=== PATIENT | male | born 1960 | race Caucasian/White ===

== ENCOUNTER 2024-01-30 15:37 | Inpatient (IN) ==
[2024-01-30] MEDS: ONDANSETRON INJ 2 MG/ML 2 ML VIAL IV STA (15:57)
[2024-01-30 16:18] LABS: Appearance Urine Clear (Clear); Bacteria Urine Automated Negative (Negative); Basophils # (auto) 0.08 K/uL (0.00-0.20); Basophils % (auto) 0.6 %; Bilirubin Urine Negative (Negative); Blood Urine Trace (Negative); Cast Urine Automated 0 /lpf (0-5); Color Urine Yellow; Eosinophils # (auto) 0.01 K/uL (0.00-0.50); Eosinophils % (auto) 0.1 %; Glucose Urine UA Trace (Negative); Hemoglobin 17.4 g/dl (14.0-18.0); Immature Granulocytes # (auto) 0.06 K/uL (0.01-0.20); Immature Granulocytes % (auto) 0.5 %; Ketones Urine 3+ (Negative); Leukocyte Esterase Urine Negative (Negative); Lymphocytes # (auto) 1.84 K/uL (1.20-3.40); Lymphocytes % (auto) 13.8 %; Mean Corpuscular Hemoglobin 31.2 pg (25.0-34.0); Mean Corpuscular Volume 84.2 fL (80.0-100.0); Monocytes % (auto) 10.5 %; Neutrophils # (auto) 9.92 K/uL (1.40-6.50); Neutrophils % (auto) 74.5 %; Nitrite Urine Negative (Negative); Platelet Count 201 K/uL (130-400); Protein Urine Negative (Negative); RBC Urine Automated 0-4 /hpf (0-4); RDW Coefficient of Variation 12.5 % (11.5-14.5); RDW Standard Deviation 38.2 fL (36.4-46.3); Red Blood Count 5.58 M/uL (4.70-6.10); Urobilinogen Urine Negative (Negative); White Blood Count 13.31 K/ul (4.8-10.8)
--- NOTE | 2024-01-30 16:28 | Emergency Department Note ---
ED Provider Note History of Present Illness Chief Complaint: Abdominal Pain Stated Complaint: ABDOMINAL PAIN - REFERRED BY MD Time Seen by Provider: 01/30/24 16:15 Source: patient Mode of arrival: ambulatory Limitations: no limitations This patient is a 63-year-old male who presents to the emergency department for evaluation of abdominal pain. Patient reports that symptoms started 3 days ago with an urge to have a bowel movement, but he was unable to go. He states that symptoms persisted and he took Dulcolax without relief. Yesterday, he started to feel somewhat better and try to eat a light meal but threw up immediately afterward. He is unable to keep anything down. He continues to have an uncomfortable feeling in his abdomen as well as a sensation that he has to have a bowel movement. He states that he has had episodes similar to this in the past, but they typically occur when he is very stressed and he assumes they are due to IBS. He states that they normally resolve on their own within about a day. He denies any fever/chills, urinary symptoms, chest pain or shortness of breath. He denies any rectal bleeding. He did have a colonoscopy a month ago which was normal. Home Medications Medication Instructions Recorded Confirmed Type cetirizine 10 mg capsule (Zyrtec) 10 mg PO QAM 09/10/23 02/09/24 History flecainide 50 mg tablet 50 mg PO Q12H #60 tabs 02/02/24 02/09/24 Rx metoprolol succinate 50 mg 50 mg PO DAILY #30 tabs 02/02/24 02/09/24 Rx tablet,extended release 24 hr rivaroxaban 20 mg tablet (Xarelto) 20 mg PO DAILY 02/04/24 02/09/24 History multivitamin 1 tab PO DAILY 02/07/24 02/09/24 History acetaminophen 325 mg tablet 325 mg PO QID PRN 02/09/24 02/09/24 History (Tylenol) buspirone 5 mg tablet 5 mg PO TID 30 days #90 tabs 02/09/24 02/09/24 Rx Allergies Allergy/AdvReac Type Severity Reaction Status Date / Time No Known Allergies Allergy Verified 02/09/24 11:41 Past Med/Surg History Medical History (Updated 02/10/24 @ 22:40 by Jenny Ma PA-C) HTN (hypertension) Left ureteral stone Impaired fasting glucose Afib Lyme disease 07/2023- per PCP records- completed course of Doxy- symptoms resolved Dupuytren's contracture of both hands Surgical History (Updated 01/31/24 @ 15:12 by Edith Nixon DO) Hx of colonoscopy Status post Dupuytren's fasciectomy 09/23/23--Right small finger Dupuytren's fasciectomy, palm and finger with release of proximal interphalangeal joint, including volar PIP capsulotomy History of tooth extraction per pt, given propofol; no issues Family History Mother Lung cancer Stroke Myocardial infarction Heart disease Denies family history of Ovarian cancer Prostate cancer Diabetes Breast cancer Colorectal cancer Hypertension Social History Smoking Status: Never smoker Second Hand Exposure: No; Do You Dip or Chew Tobacco: No; Hx Alcohol Use: No Hx Substance Use: No Preferred Language: Telugu Communication Ability: Effective Visual Impairment: Limited Hearing Ability: Normal 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: No Beliefs That Will Affect Care: None marital status: Current Living Situation: Spouse current occupational status: employed 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 How many Children do You have: 2 Feels Safe at Home: Yes Childhood Exposure to Second-Hand Smoke: Yes caffeine: Yes Dental Care, Regularly: Yes Physical Activity Frequency: 5-6 Times per Week Physical Activity Frequency Comment: walking Seatbelt Use: always Sunscreen Use: Yes Assistive Devices: None Physical Exam Vital Signs Vital Signs - 24 hr 01/30/24 15:45 Temperature 36.5 C Temperature Source Temporal Artery Scan Pulse Rate 91 H Respiratory Rate 19 Respiratory Effort / Characteristics Non-Labored Spontaneous Respiratory Depth Normal Blood Pressure 141/99 H Blood Pressure Mean 113 Pulse Oximetry 98 Oxygen Delivery Method Room Air Sepsis Recent Fever Within 48 Hours No Sepsis New/Unexplained Change in Mental Status No Sepsis Action Taken by Nursing No Action Required VITALS: Vitals are noted on the nurse's note and reviewed by myself. GENERAL: This is a 63-year-old male, in no acute distress, well-developed well- nourished. EYES: Pupils equal round and reactive to light and accommodation. No scleral icterus. MOUTH: Mucous membranes moist. HEART: Regular rate and rhythm without murmurs gallops or rubs. LUNGS: Clear to auscultation bilaterally without wheezes, rales or rhonchi. ABDOMEN: Positive bowel sounds x 4. Soft, mild tenderness to palpation across lower abdomen. No guarding or rebound tenderness. NEURO: Patient was alert and oriented to person place and time. Course Administered Medications Discontinued Medications Acetaminophen (Acetaminophen 325 Mg Tab) 650 mg PO Q4H PRN PRN Reason: Pain or Fever Stop: 02/29/24 19:58 Last Admin: 02/01/24 20:48 Dose: 650 mg Documented By: Admin: 02/01/24 16:00 Dose: 650 mg Documented By: Admin: 02/01/24 06:12 Dose: 650 mg Documented By: Admin: 02/01/24 00:04 Dose: 650 mg Documented By: Admin: 01/31/24 20:25 Dose: 650 mg Documented By: CHRIS Adenosine (Adenosine Iv Soln 3 Mg/Ml 2 Ml Vial) Confirm Administered Dose 12 mg IV .STK-MED ONE Stop: 01/30/24 19:32 Last Admin: 01/30/24 19:49 Dose: Not Given Documented By: ERA Bisacodyl (Bisacodyl 5 Mg Tabec) 5 mg PO NOW ONE Stop: 02/01/24 14:26 Last Admin: 02/01/24 15:53 Dose: Not Given Documented By: PIETRO Buspirone HCl (Buspirone 5 Mg Tab) 5 mg PO TID PRISCILLA Stop: 03/02/24 20:59 Last Admin: 02/02/24 09:18 Dose: 5 mg Documented By: Admin: 02/01/24 20:48 Dose: 5 mg Documented By: ALEJANDRA Ceftriaxone Sodium (Ceftriaxone Sodium 2000mg/50ml D5w) Confirm Administered Dose 2,000 mg IV .STK-MED ONE Stop: 01/30/24 20:18 Last Admin: 01/30/24 20:25 Dose: Not Given Documented By: ERA Diatrizoate Meglumine (Diatrizoate Meglumine 30% 100ml Vial) 100 ml INSTIL UD PRN PRN Reason: Radiology Use Stop: 02/04/24 15:50 Last Admin: 01/31/24 16:07 Dose: 30 ml Documented By: [id number] Flecainide Acetate (Flecainide Acetate 100 Mg Tablet) 100 mg PO ONE ONE Stop: 02/01/24 11:41 Last Admin: 02/01/24 12:36 Dose: 100 mg Documented By: PIETRO Flecainide Acetate (Flecainide Acetate 100 Mg Tablet) 50 mg PO Q12 PRISCILLA Stop: 03/02/24 20:59 Last Admin: 02/02/24 09:17 Dose: 50 mg Documented By: Admin: 02/01/24 20:48 Dose: 50 mg Documented By: ALEJANDRA Heparin Sodium (Porcine) (Heparin Sod (Porcine) 1000 Unit/Ml) 4,000 units IV NOW ONE Stop: 01/31/24 07:31 Last Admin: 01/31/24 08:19 Dose: 4,000 units Documented By: POLO Co-signed By: SEBASTIAN Heparin Sodium/Dextrose (Heparin Iv Adult Wt-Based Low-Dose *No* Initial Bolus Protocol) 1 each IV ONE STA; Protocol Stop: 01/30/24 20:18 Last Admin: 01/31/24 08:29 Dose: Not Given Documented By: POLO Hydromorphone HCl (Hydromorphone Inj 0.5 Mg/0.5 Ml Syr) 0.5 mg IV NOW STA Stop: 01/30/24 19:22 Last Admin: 01/30/24 19:51 Dose: 0.5 mg Documented By: ERA Hydromorphone HCl (Hydromorphone Inj 1 Mg/Ml Syringe) 1 mg IV Q4H PRN PRN Reason: Severe Pain (7,8,9,10) on NRS Stop: 02/13/24 20:14 Last Admin: 01/31/24 10:36 Dose: 1 mg Documented By: Admin: 01/31/24 06:40 Dose: 1 mg Documented By: Admin: 01/31/24 02:44 Dose: 1 mg Documented By: Admin: 01/30/24 22:34 Dose: 1 mg Documented By: YANY Hydromorphone HCl (Hydromorphone Inj 1 Mg/Ml Syringe) 1 mg IV Q3H PRN PRN Reason: Severe Pain (7,8,9,10) on NRS Stop: 02/13/24 20:14 Last Admin: 01/31/24 13:39 Dose: 1 mg Documented By: POLO Sodium Chloride (Nss) 1,000 mls @ 999 mls/hr IV .Q1H1M ONE Stop: 01/30/24 17:24 Last Infusion: 01/30/24 18:52 Dose: Infused Documented By: Admin: 01/30/24 16:47 Dose: 999 mls/hr Documented By: ERA Lactated Ringer's (Lr) 1,000 mls @ 999 mls/hr IV .Q1H1M ONE Stop: 01/30/24 20:43 Last Infusion: 01/30/24 23:38 Dose: Infused Documented By: Admin: 01/30/24 20:26 Dose: 999 mls/hr Documented By: Infusion: 01/30/24 20:26 Dose: Infused Documented By: Admin: 01/30/24 19:50 Dose: 999 mls/hr Documented By: ERA Lactated Ringer's (Lr) 1,000 mls @ 999 mls/hr IV .Q1H1M ONE Stop: 01/30/24 20:54 Last Infusion: 01/30/24 23:39 Dose: Infused Documented By: Admin: 01/30/24 21:53 Dose: 999 mls/hr Documented By: YANY Lactated Ringer's (Lr) 500 mls @ 999 mls/hr IV .Q31M ONE Stop: 01/30/24 20:24 Last Infusion: 01/30/24 23:39 Dose: Infused Documented By: [facility] Admin: 01/30/24 20:26 Dose: 999 mls/hr Documented By: ERA Ceftriaxone Sodium 2,000 mg/ (Dextrose) 50 mls @ 100 mls/hr IV Q24H [facility]; Protocol Stop: 02/04/24 19:59 Last Infusion: 01/31/24 20:56 Dose: Infused Documented By: Admin: 01/31/24 20:26 Dose: 100 mls/hr Documented By: Infusion: 01/30/24 22:37 Dose: Infused Documented By: [facility] Admin: 01/30/24 21:52 Dose: 100 mls/hr Documented By: [facility] Heparin Sodium/Dextrose (Heparin Sodium/Dextrose) 25,000 units in 500 mls @ 0 mls/hr IV .Q0M PRISCILLA; Protocol Stop: 02/29/24 22:29 Last Titration: 02/02/24 09:00 Dose: Infused Documented By: PK Co-signed By: BEBA Titration: 01/31/24 11:02 Dose: 0 units/hr, 0 mls/hr Documented By: DTT Co-signed By: RAUL Titration: 01/31/24 07:19 Dose: 1,200 units/hr, 24 mls/hr Documented By: DTT Co-signed By: AJJanie Titration: 01/31/24 07:19 Dose: 1,000 units/hr, 20 mls/hr Documented By: DTT Co-signed By: RAUL Titration: 01/31/24 07:18 Dose: 1,000 units/hr, 20 mls/hr Documented By: DTT Co-signed By: RAUL Admin: 01/30/24 23:25 Dose: 1,000 units/hr, 20 mls/hr Documented By: ASM Co-signed By: DEEPIKA Parenteral Electrolytes (Plasma-Lyte A Ph 7.4) 1,000 mls @ 50 mls/hr IV .Q20H PRISCILLA Stop: 02/29/24 21:29 Last Admin: 02/01/24 17:59 Dose: Not Given Documented By: Infusion: 02/01/24 06:59 Dose: Infused Documented By: Admin: 02/01/24 00:05 Dose: 125 mls/hr Documented By: Infusion: 02/01/24 00:05 Dose: Infused Documented By: Admin: 01/31/24 18:12 Dose: 125 mls/hr Documented By: Infusion: 01/31/24 18:12 Dose: Infused Documented By: Infusion: 01/31/24 15:21 Dose: 0 mls/hr Documented By: Admin: 01/31/24 07:37 Dose: 125 mls/hr Documented By: Infusion: 01/31/24 07:25 Dose: Infused Documented By: Admin: 01/30/24 23:25 Dose: 125 mls/hr Documented By: YANY Cefazolin Sodium (Ancef 2000mg) 2,000 mg in 15 mls @ 3.75 mls/min IV ONCE ONE; Protocol Stop: 01/31/24 15:57 Last Admin: 01/31/24 15:33 Dose: 3.75 mls/min Documented By: FATIMAH Lorazepam 0.25 mg/ Syringe 0.25 mls @ 2 mls/min IV NOW STA Stop: 01/31/24 21:40 Last Admin: 01/31/24 21:49 Dose: 2 mls/min Documented By: CHRIS Insulin Aspart (Insulin Aspart Per Unit Charge) 0 units SC ACHS PRISCILLA Stop: 02/29/24 20:59 Last Admin: 02/01/24 12:13 Dose: Not Given Documented By: Admin: 02/01/24 09:19 Dose: Not Given Documented By: Admin: 01/31/24 20:49 Dose: 1 units Documented By: CHRIS Co-signed By: BRICE Admin: 01/31/24 18:38 Dose: Not Given Documented By: Admin: 01/31/24 12:16 Dose: Not Given Documented By: Admin: 01/31/24 08:29 Dose: Not Given Documented By: Admin: 01/30/24 22:36 Dose: Not Given Documented By: YANY Ioversol (Optiray 320 100ml) 89 ml IV ONCE ONE Stop: 01/30/24 16:57 Last Admin: 01/30/24 16:57 Dose: 89 ml Documented By: DEANDRA Ketorolac Tromethamine (Ketorolac Tromethamine 15 Mg/Ml Vial) 15 mg IV NOW STA Stop: 01/30/24 17:35 Last Admin: 01/30/24 17:47 Dose: 15 mg Documented By: ERA Lorazepam (Lorazepam 1 Mg Tab) 1 mg SL NOW STA Stop: 02/01/24 09:41 Last Admin: 02/01/24 10:33 Dose: 1 mg Documented By: PIETRO Melatonin (Melatonin 3 Mg Tab) 3 mg PO HS PRN PRN Reason: Sleep Stop: 03/02/24 18:09 Last Admin: 02/01/24 20:48 Dose: 3 mg Documented By: ALEJANDRA Metoprolol Tartrate (Metoprolol Tartrate 1 Mg/Ml Vial) 5 mg IV NOW STA Stop: 01/30/24 19:40 Last Admin: 01/30/24 19:40 Dose: 5 mg Documented By: ERA Metoprolol Tartrate (Metoprolol Tartrate 1 Mg/Ml Vial) Confirm Administered Dose 5 mg IV .STK-MED ONE Stop: 01/30/24 19:41 Last Admin: 01/30/24 19:49 Dose: Not Given Documented By: ERA Metoprolol Tartrate (Metoprolol Tartrate 25 Mg Tab) 25 mg PO BID PRISCILLA Stop: 02/29/24 19:54 Last Admin: 01/31/24 08:30 Dose: Not Given Documented By: Admin: 01/30/24 20:23 Dose: 25 mg Documented By: ERA Metoprolol Tartrate (Metoprolol Tartrate 25 Mg Tab) 12.5 mg PO BID PRISCILLA Stop: 03/01/24 20:59 Last Admin: 02/01/24 09:20 Dose: 12.5 mg Documented By: Admin: 01/31/24 20:50 Dose: 12.5 mg Documented By: CHRIS Metoprolol Tartrate (Metoprolol Tartrate 25 Mg Tab) 25 mg PO BID PRISCILLA Stop: 03/01/24 20:59 Last Admin: 02/02/24 09:17 Dose: 25 mg Documented By: Admin: 02/01/24 20:50 Dose: 25 mg Documented By: Admin: 02/01/24 11:17 Dose: 25 mg Documented By: PIETRO Metoprolol Tartrate (Metoprolol Tartrate 1 Mg/Ml Vial) 5 mg IV NOW STA Stop: 02/01/24 09:42 Last Admin: 02/01/24 10:33 Dose: 5 mg Documented By: PIETRO Morphine Sulfate (Morphine Sulfate 10 Mg/Ml Carp/Vial) 6 mg IV NOW STA Stop: 01/30/24 17:35 Last Admin: 01/30/24 17:46 Dose: 6 mg Documented By: ERA Ondansetron HCl (Ondansetron Inj 2 Mg/Ml 2 Ml Vial) 4 mg IV NOW STA Stop: 01/30/24 15:49 Last Admin: 01/30/24 15:57 Dose: 4 mg Documented By: TI Medical Decision Making Differential Diagnosis Appendicitis, testicular torsion, infections, diverticulitis, UTI, obstruction, mesenteric ischemia, aortic pathology, inflammatory bowel disease, renal colic, PUD, pancreatitis, biliary pathology, hernia, volvulus, constipation, as well as other pathologies. Laboratory Data Attestation: I reviewed the patient's lab results. 02/02/24 06:22 02/02/24 06:22 Lab Results 01/30/24 01/30/24 01/30/24 Range/Units 15:54 17:05 19:38 WBC 13.31 H (4.8-10.8) K/ul RBC 5.58 (4.70-6.10) M/uL Hgb 17.4 (14.0-18.0) g/dl Hct 47.0 (42.0-52.0) % MCV 84.2 (80.0-100.0) fL MCH 31.2 (25.0-34.0) pg MCHC 37.0 H (32.0-36.0) g/dL RDW Std Deviation 38.2 (36.4-46.3) fL RDW Coeff of Michael 12.5 (11.5-14.5) % Plt Count 201 (130-400) K/uL MPV 9.0 L (9.4-12.4) fL Immature Gran % (Auto) 0.5 % Neut % (Auto) 74.5 % Lymph % (Auto) 13.8 % Moody % (Auto) 10.5 % Eos % (Auto) 0.1 % Baso % (Auto) 0.6 % Neut # (Auto) 9.92 H (1.40-6.50) K/uL Lymph # (Auto) 1.84 (1.20-3.40) K/uL Moody # (Auto) 1.40 H (0.11-0.59) K/uL Eos # (Auto) 0.01 (0.00-0.50) K/uL Baso # (Auto) 0.08 (0.00-0.20) K/uL Immature Gran # (Auto) 0.06 (0.01-0.20) K/uL PT 12.4 H (9.0-12.0) Seconds INR 1.1 (0.9-1.1) APTT 26 (21-31) Seconds PTT Ratio 0.9 VBG pH 7.57 H (7.36-7.41) VBG pCO2 22 L (38-50) mmHg VBG pO2 58 mmHg VBG HCO3 20 mmol/L VBG O2 Saturation 93.2 % VBG Base Excess 0 mEq/L Sodium 135 L (136-145) mmol/L Potassium TNP 3.7 Chloride 103 (98-107) mmol/L Carbon Dioxide 17 L (21-32) mmol/L Anion Gap 15 H (3-11) BUN 19 (6-23) mg/dl Creatinine 1.27 (0.6-1.4) mg/dl Est Cr Clr Drug Dosing 78.5 ml/min Est GFR ( Amer) 70.2 ml/min Est GFR (Non-Af Amer) 60.6 ml/min BUN/Creatinine Ratio 15.0 (10-20) Glucose 134 H (70-99(Fasting)) mg/dl Estimat Average Glucose 100 mg/dl Hemoglobin A1c 5.1 (4.5-5.6) % Lactate 2.2 H* (0.4-2.0) mmol/L Calcium 9.6 (8.6-10.3) mg/dl Magnesium 2.0 (1.7-2.4) mg/dl Total Bilirubin 2.1 H (0.2-1.0) mg/dl AST TNP 14 ALT 15 (7-52) U/L Alkaline Phosphatase 72 (34-104) U/L Total Protein 7.7 (6.0-8.3) gm/dl Albumin 4.4 (3.4-5.0) gm/dl Globulin 3.3 (2.5-4.0) gm/dl Albumin/Globulin Ratio 1.3 (0.9-2) Lipase 18 (11-82) U/L Urine Color Yellow Urine Appearance Clear (Clear) Urine pH 6.0 (4.5-7.5) Ur Specific [place] 1.010 (1.000-1.030) Urine Protein Negative (Negative) Urine Glucose (UA) Trace H (Negative) Urine Ketones 3+ H (Negative) Urine Blood Trace H (Negative) Urine Nitrite Negative (Negative) Urine Bilirubin Negative (Negative) Urine Urobilinogen Negative (Negative) Ur Leukocyte Esterase Negative (Negative) Urine WBC (Auto) 1-5 (0-5) /hpf Urine RBC (Auto) 0-4 (0-4) /hpf U Hyaline Cast (Auto) 0 (0-5) /lpf U Epithel Cells (Auto) 5-10 H (0-5) /lpf Urine Bacteria (Auto) Negative (Negative) Imaging Data Attestation: I personally reviewed and interpreted this imaging study as follows: Radiologist's Impression: Abdomen/Pelvis CT 01/30/24 16:[address] WITH IV CONTRAST CT DOSE: 1545.67 mGy.cm HISTORY: abdominal discomfort, vomiting TECHNIQUE: Multiaxial CT images of the abdomen and pelvis were performed following the use of intravenous contrast. A dose lowering technique was utilized adhering to the principles of ALARA. COMPARISON STUDY: None. FINDINGS: The lung bases are clear. No pneumoperitoneum. No pneumatosis. No acute fractures identified. The liver, gallbladder, pancreas, spleen, and adrenal glands are unremarkable. A 9 mm hypodense lesion within the right kidney is technically too small to characterize but favors a cyst. No right-sided hydronephrosis. There is a 12 x 9 mm obstructing stone within the distal left ureter on image 338 resulting in moderate left hydroureteronephrosis and left perinephric edema. There is a 1.9 cm exophytic lesion within the left kidney on image 157. This does not clearly represent a simple cyst and could represent a hyperdense cyst. However, follow-up nonemergent renal ultrasound recommended to exclude the possibility of a solid renal mass. The main portal vein is patent. Normal caliber abdominal aorta. No retroperitoneal or pelvic lymphadenopathy. Normal bladder. No pelvic free fluid. Small fat-containing right inguinal hernia is noted. Colonic diverticulosis. No evidence for acute diverticulitis. No bowel wall thickening or obstruction. Normal appendix. IMPRESSION: 1. A 12 x 9 mm obstructing stone within the distal left ureter resulting in moderate left hydroureteronephrosis. 2. Colonic diverticulosis. No evidence for acute diverticulitis. 3. A 1.9 cm exophytic lesion within the left kidney which does not clearly represent a simple cyst. This could represent a hyperdense cyst. However, follow-up nonemergent renal ultrasound recommended to exclude the possibility of a solid renal mass. ACT 112: Positive. There are findings on this exam that require communication between the performing entity and the patient following Patient Test Result Information Act ([place] Act 112) guidelines. Electronically signed by: Jayden Davila M.D. 01/30/2024 5:25 PM MDM Narrative Continuous miner: Order was placed for continuous miner. Patient was placed on the miner. Patient was noted to be in normal sinus rhythm at an initial rate of 86 bpm. The patient is a 63-year-old male who presents today complaining of abdominal pain. Patient was found to have a large left ureteral stone. Labs do show a mild anion gap acidosis. Mild leukocytosis noted, no evidence of infection on UA and no fever. Despite several doses of pain medication, he did have continued discomfort and was agreeable to admission. Case discussed with information security specialist urology who recommended admission to the medical service. Case discussed with [facility] [place] who agreed to evaluate the patient for further care. Impression Left ureteral stone Discharge Plan Visit Data Chief Complaint: Abdominal Pain Stated Complaint: ABDOMINAL PAIN - REFERRED BY ED Provider: Zachariah Fraire ED Midlevel Provider: Jenny Ma Discharge Problem: Left ureteral stone Patient Disposition: Admitted As Inpatient Discharge Instructions Interventions: ED Discharge Assessment Last Done: 01/30/24 21:21
[2024-01-30 16:44] LABS: Alanine Aminotransferase 15 U/L (7-52); Albumin Globulin Ratio 1.3 (0.9-2); Albumin Level 4.4 gm/dl (3.4-5.0); Alkaline Phosphatase 72 U/L (34-104); Anion Gap 15 (3-11); Bilirubin,Total 2.1 mg/dl (0.2-1.0); Blood Urea Nitrogen 19 mg/dl (6-23); Calcium 9.6 mg/dl (8.6-10.3); Carbon Dioxide 17 mmol/L (21-32); Chloride 103 mmol/L (98-107); Creatinine Clr Calc Pharmacy 78.5 ml/min; Est GFR (African American) 70.2 ml/min; Est GFR (Non-African American) 60.6 ml/min; Globulin 3.3 gm/dl (2.5-4.0); Glucose 134 mg/dl (70-99(Fasting)); Lipase 18 U/L (11-82); Sodium 135 mmol/L (136-145); Total Protein 7.7 gm/dl (6.0-8.3)
[2024-01-30] MEDS: SODIUM CHLORIDE 0.9% 1,000 ML IV ONE (16:47)
[2024-01-30] MEDS: OPTIRAY 320 100ml IV ONE (16:57)
--- NOTE | 2024-01-30 17:28 | CT Scan Report ---
ABDOMEN AND PELVIS CT WITH IV CONTRAST CT DOSE: 1545.67 mGy.cm HISTORY: abdominal discomfort, vomiting TECHNIQUE: Multiaxial CT images of the abdomen and pelvis were performed following the use of intrave nous contrast. A dose lowering technique was utilized adhering to the principles of ALARA. COMPARISON STUDY: None. FINDINGS: The lung bases are clear. No pneumoperitoneum. No pneumatosis. No acute fractures identifie d. The liver, gallbladder, pancreas, spleen, and adrenal glands are unremarkable. A 9 mm hypodense le fernando within the right kidney is technically too small to characterize but favors a cyst. No right-valarie ed hydronephrosis. There is a 12 x 9 mm obstructing stone within the distal left ureter on image 338 resulting in moderate left hydroureteronephrosis and left perinephric edema. There is a 1.9 cm exophy tic lesion within the left kidney on image 157. This does not clearly represent a simple cyst and cou ld represent a hyperdense cyst. However, follow-up nonemergent renal ultrasound recommended to exclud e the possibility of a solid renal mass. The main portal vein is patent. Normal caliber abdominal aor ta. No retroperitoneal or pelvic lymphadenopathy. Normal bladder. No pelvic free fluid. Small fat-con taining right inguinal hernia is noted. Colonic diverticulosis. No evidence for acute diverticulitis. No bowel wall thickening or obstruction. Normal appendix. IMPRESSION: 1. A 12 x 9 mm obstructing stone within the distal left ureter resulting in moderate left hydroureter onephrosis. 2. Colonic diverticulosis. No evidence for acute diverticulitis. 3. A 1.9 cm exophytic lesion within the left kidney which does not clearly represent a simple cyst. T his could represent a hyperdense cyst. However, follow-up nonemergent renal ultrasound recommended to exclude the possibility of a solid renal mass. ACT 112: Positive. There are findings on this exam that require communication between the performing entity and the patient following Patient Test Result Information Act ([place] Act 112) guidelines. Electronically signed by: Jayden Davila M.D. 01/30/2024 5:25 PM
[2024-01-30 17:35] LABS: Potassium 3.7 mmol/L (3.5-5.1)
[2024-01-30] MEDS: MoRPHine SULFATE 10 MG/ML CARP/VIAL IV STA (17:46)
[2024-01-30] MEDS: KETOROLAC TROMETHAMINE 15 MG/ML VIAL IV STA (17:47)
--- NOTE | 2024-01-30 19:22 | History & Physical Report ---
Date of Service January 30, 2024 Assessment & Plan (1) Nephrolithiasis: Plan: - CTA/P with 9 x 12 mm obstructing stone in the distal left ureter with moderate left hydro, no NANCY is present 1.9 cm exophytic lesion of left kidney, renal ultrasound pending for further e valuation UA is without bacteria, leukocyte esterase, or nitrites Patient is with elevated lactate of 2.2, almost no p.o. intake in 3 days and vomiting with a likely contraction metabolic alkalosis. VBG was drawn at time of patient slightly hyperventilating following SVT/A-fib episode and following Valsalva maneuvers with a respiratory alkalosis on VBG 30 cc/kg of IBW crystalloid ordered for resuscitation. Low suspicion for sepsis, however in setting of obstructing stone blood cultures were ordered and 1 dose of empiric Rocephin was given. Defer additional and follow fever curve D/w urology who are consulted. Possible intervention tomorrow. N.p.o. at midnight. (2) Afib: Plan: Atrial fibrillation While pending admit patient spontaneously converted into narrow complex tach arrhythmia rate 150. Reported history of SVT, while preparing adenosine to further evaluate, new order was performed which did not terminate rhythm however subsequently patient did downtrend and repeat EKG showed underlying A-fib with RVR. 5 mg of IV metoprolol was given, and oral metoprolol was started. Patient has a CHADS2 Vasc score of 1 due to HTN, possibly 2 (pending A1C, however fasting BSG has been elevated so likelike a score of 2). Of note patient did have a history of suspected SVT during his prior colonoscopy, this terminated and patient return to sinus shortly after receiving a single dose of esmolol Repeat EKG consistent with A-fib RVR. Patient anticoagulated for [id number] of 12 Admitted to telemetry (3) Impaired fasting glucose: Plan: A1c pending N.p.o. pending urology surgical evaluation, if A1c elevated switch to heart healthy DM 2 diet with SSI Plan DVT prophylaxis: Heparinized CODE STATUS: Full code Disposition: PCU for afib rvr History of Present Illness Primary Care Provider: DO Pritesh Abrams is a 63-year-old male with a past medical history of Dupuytren's contractures presents to the ER for abdominal pain of 3 days with constipation. Pain is worse with meals and induces nausea. CTA/P shows a 12 x 9 mm obstructing stone in the left distal ureter with moderate left hydro. Creatinine baseline is around 1, 1.27 on admissionUA is noninfected appearing S/p 1 L NSS in the ER Patient has a metabolic acidosis on admission. Patient seen in the ER for abdominal discomfort, nausea, vomiting and almost no p.o. intake since . Does not have an NANCY. No hematochezia, melena, hemoptysis. Denies chest pain, chest pressure, lightheadedness, dizziness, shortness of breath, fever, chills, sweats. Palpation of the abdomen does not worsen his pain. Patient reports he has a history of hypertension currently diet controlled but normally in the 140s. He is not sure if he has diabetes, no prior history but his fasting glucoses have been elevated and he was pending an outpatient A1c. Denies history of regular alcohol use, no tobacco history, denies history of AMANDA During exam patient does spontaneously convert from a rate of 70s to 80s to a narrow complex tachycardia with rate 150. Patient reports that he had a history of SVT with prior colonoscopy. Given this and sudden rate adenosine was prepared however with Valsalva maneuver patient did slow to a rate of approximately 100, EKG capture # A-fib and patient then maintained rate of approximately [id number]. 5 mg IV metoprolol was given with improvement in rate from 901 10 and repeat EKG was consistent with A-fib RVR. Additional metoprolol available on-call moved and oral metoprolol was initiated. Benefits of anticoagulation for stroke prophylaxis were discussed. As he has a [id number] VASc of 0 reasonable to defer anticoagulation at this time Medical History: Reviewed Medications: Reviewed Surgical History: Reviewed Family history: Reviewed. Does have family history of A-fib in his mother, who also had cardiac disease and strokes past age 70 Allergies: Reviewed Social History: Reviewed Code Status: Full Allergies Allergy/AdvReac Type Severity Reaction Status Date / Time No Known Allergies Allergy Verified 01/30/24 18:10 Home Medications Medication Instructions Recorded Confirmed Type cetirizine 10 mg capsule (Zyrtec) 10 mg PO QAM 10/27/23 03/17/24 History ibuprofen 200 mg tablet (Advil) 400 - 600 mg PO Q6H PRN Pain 01/30/24 01/30/24 History Past Med/Surg History Medical History (Updated 01/31/24 @ 15:12 by Edith Nixon DO) HTN (hypertension) Left ureteral stone Impaired fasting glucose Afib Lyme disease 07/2023- per PCP records- completed course of Doxy- symptoms resolved Dupuytren's contracture of both hands Surgical History (Updated 01/31/24 @ 15:12 by Edith Nixon DO) Hx of colonoscopy Status post Dupuytren's fasciectomy 09/23/23--Right small finger Dupuytren's fasciectomy, palm and finger with release of proximal interphalangeal joint, including volar PIP capsulotomy History of tooth extraction per pt, given propofol; no issues Family History Mother Lung cancer Stroke Myocardial infarction Heart disease Denies family history of Ovarian cancer Prostate cancer Diabetes Breast cancer Colorectal cancer Hypertension Social History Smoking Status: Never smoker Second Hand Exposure: No; Do You Dip or Chew Tobacco: No; Hx Alcohol Use: No Hx Substance Use: No Preferred Language: Divehi Communication Ability: Effective Visual Impairment: Limited Hearing Ability: Normal 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 NAD. Cooperative. HEENT: Atraumatic, normocephalic. Pulm: CTAB A&P. -wheezes, -rales, -rhonchi. Symmetrical chest rise. No increased work of breathing. No respiratory distress. Cardiac: RRR, -mrg. Radial pulses intact and symmetrical. Abdominal: Nontender, nondistended, soft. BS present. On reassessment patient tachycardic with rate of 150 as noted subsequently slows with irregularly irregular rate of approximately 901 10. Neurovascularly intact, patient was not hypotensive at any point Results & Data Results & Data Vital Signs (Past 12 Hours) Vital Signs Temp Pulse Pulse Resp BP BP Pulse Ox 01/30/24 18:49 75 17 142/86 H 99 01/30/24 17:38 95 01/30/24 16:34 69 01/30/24 15:45 36.5 C 91 H 19 141/99 H 98 O2 Del Method 01/30/24 18:49 Room Air 01/30/24 17:38 Room Air 01/30/24 16:34 01/30/24 15:45 Room Air PG Care Time/CCT Total # of Minutes Spent Total Time Spent with Patient: Total time spent is greater than 50% in coordination of care (as documented) at patient's floor/unit and/or counseling patient: Coding Level of Care Code 40331 INT INP/OBS CARE /75MIN Diagnoses Nephrolithiasis N20.0 Afib I48.91 Impaired fasting glucose R73.01
[2024-01-30] MEDS: METOPROLOL TARTRATE 1 MG/ML VIAL IV STA (19:40)
[2024-01-30] MEDS: METOPROLOL TARTRATE 1 MG/ML VIAL IV ONE (19:49)
[2024-01-30] MEDS: ADENOSINE IV SOLN 3 MG/ML 2 ML VIAL IV ONE (19:49)
[2024-01-30] MEDS: LACTATED RINGER'S 1,000 ML IV ONE ×2 (19:50→21:53)
[2024-01-30] MEDS: HYDROmorphone INJ 0.5 MG/0.5 ML SYR IV STA (19:51)
[2024-01-30 19:52] LABS: Base Excess VBG 0 mEq/L; HCO3 VBG 20 mmol/L; Oxygen Saturation VBG 93.2 %; PCO2 VBG 22 mmHg (38-50); PO2 VBG 58 mmHg; pH VBG 7.57 (7.36-7.41)
[2024-01-30] MEDS ORDERED: METOPROLOL TARTRATE 1 MG/ML VIAL IV PRN (19:53)
[2024-01-30] MEDS ORDERED: POLYETHYLENE (MIRALAX) 17 GM PACK PO PRN (19:59)
[2024-01-30] MEDS ORDERED: ACETAMINOPHEN 1,000 MG/100 ML VIAL IV PRN (20:15)
[2024-01-30] MEDS ORDERED: HYDROmorphone INJ 0.5 MG/0.5 ML SYR IV PRN (20:15)
[2024-01-30] MEDS ORDERED: GLUCOSE 40% GEL 15 GM TUBE PO PRN (20:20)
[2024-01-30] MEDS ORDERED: GLUCAGON FOR INJ 1 MG VIAL SQ PRN (20:20)
[2024-01-30] MEDS ORDERED: DEXTROSE 50% 50 ML SYRINGE IV PRN (20:20)
[2024-01-30] MEDS ORDERED: CARBOHYDRATES FOR HYPOGLYCEMIA PO PRN (20:20)
[2024-01-30] MEDS ORDERED: GLUCOSE 10 TAB/TUBE PO PRN (20:20)
[2024-01-30] MEDS: METOPROLOL TARTRATE 25 MG TAB PO SCH (20:23)
[2024-01-30] MEDS: cefTRIAXone SODIUM 2000MG/50ML D5W IV ONE (20:25)
[2024-01-30] MEDS: LACTATED RINGER'S 500 ML IV ONE (20:26)
[2024-01-30] MEDS: cefTRIAXone SODIUM 2,000 MG in DEXTROSE 5 % MINI-B 50 ML IV SCH (21:52)
[2024-01-30] MEDS: HYDROmorphone INJ 1 MG/ML SYRINGE IV PRN (22:34)
[2024-01-30] MEDS: INSULIN ASPART PER UNIT CHARGE SC SCH (22:36)
[2024-01-30] MEDS: HEPARIN SODIUM/DEXTROSE 25,000 UNITS/500 ML BAG IV SCH (23:25)
[2024-01-30] MEDS: PLASMA-LYTE A 1,000 ML IV SCH (23:25)
[2024-01-30 23:56] LABS: INR 1.1 (0.9-1.1); Partial Thromboplastin Ratio 0.9; Partial Thromboplastin Time 26 Seconds (21-31); Prothrombin Time 12.4 Seconds (9.0-12.0)
[2024-01-31 06:30] LABS: BUN Creatinine Ratio 15.4 (10-20); Calcium 8.2 mg/dl (8.6-10.3); Creatinine Clr Calc Pharmacy 95.9 ml/min; Est GFR (African American) 89.4 ml/min; Est GFR (Non-African American) 77.1 ml/min; Magnesium 1.9 mg/dl (1.7-2.4); Potassium 3.8 mmol/L (3.5-5.1)
[2024-01-31 06:44] LABS: Basophils # (auto) 0.04 K/uL (0.00-0.20); Basophils % (auto) 0.4 %; Eosinophils # (auto) 0.03 K/uL (0.00-0.50); Eosinophils % (auto) 0.3 %; Hematocrit (blood only) 40.9 % (42.0-52.0); Hemoglobin 14.3 g/dl (14.0-18.0); Immature Granulocytes # (auto) 0.05 K/uL (0.01-0.20); Immature Granulocytes % (auto) 0.5 %; Lymphocytes # (auto) 1.44 K/uL (1.20-3.40); Lymphocytes % (auto) 15.1 %; Mean Corpuscular Hemoglobin 31.1 pg (25.0-34.0); Mean Corpuscular Volume 88.9 fL (80.0-100.0); Mean Platelet Volume 8.6 fL (9.4-12.4); Monocytes # (auto) 1.16 K/uL (0.11-0.59); Monocytes % (auto) 12.1 %; Neutrophils # (auto) 6.84 K/uL (1.40-6.50); Neutrophils % (auto) 71.6 %; Platelet Count 138 K/uL (130-400); RDW Coefficient of Variation 12.9 % (11.5-14.5); RDW Standard Deviation 42.1 fL (36.4-46.3); White Blood Count 9.56 K/ul (4.8-10.8)
[2024-01-31 07:12] LABS: ANTI-Xa, UFH(UnfractionatedHep 0.13 IU/ml (0.3-0.7)
[2024-01-31 07:29] LABS: Estimated Average Glucose 100 mg/dl; Hemoglobin A1C 5.1 % (4.5-5.6)
[2024-01-31] MEDS: HEPARIN SOD (PORCINE) 1000 UNIT/ML IV ONE (08:19)
[2024-01-31] MEDS: Heparin IV Adult Wt-Based Low-Dose *NO* INITIAL Bolus Protocol IV STA (08:29)
--- NOTE | 2024-01-31 08:48 | Electrocardiogram Report ---
Test Reason : Blood Pressure : / mmHG Vent. Rate : 151 BPM Atrial Rate : 297 BPM P-R Int : 000 ms QRS Dur : 146 ms QT Int : 322 ms P-R-T Axes : 251 -04 -78 degrees QTc Int : 510 ms Atrial flutter with variable A-V block Right bundle branch block Possible Inferior infarct , age undetermined Abnormal ECG When compared with ECG of 23-DEC-2023 13:08, Atrial flutter has replaced Sinus rhythm Vent. rate has increased BY 98 BPM Right bundle branch block is now Present Borderline criteria for Inferior infarct are now Present Confirmed by Víctor Stein ([id number]) on 01/31/2024 8:48:38 AM Referred By: REFERRED SELF Confirmed By:Jett Stein
--- NOTE | 2024-01-31 08:50 | Electrocardiogram Report ---
Test Reason : Blood Pressure : / mmHG Vent. Rate : 122 BPM Atrial Rate : 122 BPM P-R Int : 124 ms QRS Dur : 096 ms QT Int : 324 ms P-R-T Axes : 053 005 019 degrees QTc Int : 461 ms Atrial fibrillation Minimal voltage criteria for LVH, may be normal variant possible Inferior infarct (cited on or before 30-JAN-2024) Abnormal ECG When compared with ECG of 30-JAN-2024 19:24, (unconfirmed) Atrial fibrillation has replaced Atrial flutter Right bundle branch block is no longer Present Questionable change in initial forces of Inferior leads Confirmed by Víctor Stein ([id number]) on 01/31/2024 8:49:42 AM Referred By: REFERRED SELF Confirmed By:Jett Stein
--- NOTE | 2024-01-31 08:50 | Electrocardiogram Report ---
Test Reason : Blood Pressure : / mmHG Vent. Rate : 104 BPM Atrial Rate : 000 BPM P-R Int : 000 ms QRS Dur : 098 ms QT Int : 338 ms P-R-T Axes : 000 006 001 degrees QTc Int : 444 ms Atrial fibrillation with rapid ventricular response Minimal voltage criteria for LVH, may be normal variant possible Inferior infarct (cited on or before 30-JAN-2024) Abnormal ECG Confirmed by Víctor Stein ([id number]) on 01/31/2024 8:50:04 AM Referred By: REFERRED SELF Confirmed By:Jett Stein
--- NOTE | 2024-01-31 10:10 | Urology Consultation ---
Date of Consultation January 31, 2024 Assessment & Plan (1) Left ureteral stone: (2) Hydronephrosis: (3) Renal colic: Plan 63yo M admitted with intractable pain secondary to an obstructing 12x9mm distal left ureteral stone and Afib. - Afebrile and hemodynamically stable. - Labs reviewed - WBC 9.56, Creatinine 1.04. - UA without signs of infection. - Blood cultures pending. - We discussed acute stone management with cystoscopy, stent placement, possible stone treatment. Discussed ureteroscopy. Ureteral stents were discussed as well as postoperative issues and pain management. He is aware second procedure may be needed. Risks and benefits were discussed. All questions were answered. - Will plan to proceed to OR today for cystoscopy, left retrograde pyelogram, left ureteral stent placement, possible ureteroscopy, laser lithotripsy/stone treatment - Risks and benefits to be reviewed with the patient by Dr. Grant. - Keep NPO. - Covered with scheduled IV ceftriaxone - Discussed with hospital team regarding holding heparin - Urology will follow. History of Present Illness Attending Physician: Leon Doherty MD History of Present Illness 63 year old male who presented to the ED on 01/30/24 with abdominal pain, nausea, and vomiting and admitted with an obstructing ureteral stone and Afib. CT abdomen pelvis on arrival demonstrated an obstructing 12 x 9mm distal left ureteral stone. In the ED he was afebrile. Labs showing a leukocytosis of 13.31 and normal renal function. Patient is with elevated lactate of 2.2. Urinalysis without bacteria, leukocyte esterase, or nitrites. While pending admit patient spontaneously converted into narrow complex tach arrhythmia rate 150. He was admitted to medicine service for continued monitoring and management. CT abdomen pelvis - 1. A 12 x 9 mm obstructing stone within the distal left ureter resulting in moderate left hydroureteronephrosis. 2. Colonic diverticulosis. No evidence for acute diverticulitis. 3. A 1.9 cm exophytic lesion within the left kidney which does not clearly represent a simple cyst. This could represent a hyperdense cyst. However, follow-up nonemergent renal ultrasound recommended to exclude the possibility of a solid renal mass. Patient examined at bedside this AM. Awake, resting in bed on arrival. No acute distress. Has been NPO. On heparin drip. Still with left-sided pain, managing with medication. Denies fever, chills, nausea, vomiting. Voiding without issue. Denies hematuria or dysuria. Denies prior history or history of stones. Attending note: Patient independently assessed, examined, interviewed, and evaluated. Agree with note as above. Patient's vitals and labs were all reviewed. Pertinent values in the HPI and plan section. Imaging was reviewed interpreted by myself. Agree with read. Vitals were reviewed. Discussed findings extensively with patient and family. Reviewed with nurse practitioner as well as consulting physicians/team. Patient's complicated medical and surgical history was reviewed and summarized above. Patient's surgical, medical, social, and family history were all reviewed with pertinent values as above. Discussed patient's current diagnosis as well as concerns and issues. Reviewed different options moving forward. Discussed potential risks and benefits as well as possible options and concerns. Reviewed potential surgical options and interventions. Discussed potential issues and concerns related to intervention. Risk and benefits were discussed extensively with patient and any available family. Discussed potential risks related to anesthesia. Discussed risks of bleeding infection and injury. White count 9.56. Creatinine 1.04. PSA checked back in August was 1.035. All other labs and vitals were reviewed. Patient has been satting at 99% on room air. Temperature is 36.7 no signs of fevers. Patient is undergoing extensive monitoring and workup due to development of heart issue. Has been on heparin drip. Has coordinated with the hospitalist team in order to hold the heparin for the procedure. Patient has small renal lesion on imaging which was also discovered. Will likely need outpatient workup. Due to the very large stone with the significant/severe amount of obstruction going to the distal ureter likely will need to have stone treated in order to allow stent placement. Reviewed extensively different options. Risk and benefits were extensively reviewed. Discussed concerns and issues including possible outcomes and expectations. Risks and benefits discussed at length for procedure. These include bleeding, infection, injury to surrounding tissues or organs, and risks associated with anesthesia. Patient states understanding and agrees to proceed. Will sign consent and schedule. Plan for Cystoscopy and possible left ureteroscopy and stone treatment. Allergies Allergy/AdvReac Type Severity Reaction Status Date / Time No Known Allergies Allergy Verified 01/30/24 18:10 Home Medications Medication Instructions Recorded Confirmed Type cetirizine 10 mg capsule (Zyrtec) 10 mg PO QAM 09/10/23 01/30/24 History ibuprofen 200 mg tablet (Advil) 400 - 600 mg PO Q6H PRN Pain 01/30/24 01/30/24 History Patient History Medical History Lyme disease 07/2023- per PCP records- completed course of Doxy- symptoms resolved Dupuytren's contracture of both hands Surgical History Status post Dupuytren's fasciectomy 09/23/23--Right small finger Dupuytren's fasciectomy, palm and finger with release of proximal interphalangeal joint, including volar PIP capsulotomy History of tooth extraction per pt, given propofol; no issues Family History Mother Lung cancer Stroke Myocardial infarction Heart disease Denies family history of Ovarian cancer Prostate cancer Diabetes Breast cancer Colorectal cancer Hypertension Social History Smoking Status: Never smoker Second Hand Exposure: No; Do You Dip or Chew Tobacco: No; Hx Alcohol Use: No Hx Substance Use: No Preferred Language: Spanish Communication Ability: Effective Visual Impairment: Limited Hearing Ability: Normal Tobacco Shaker Required: No Beliefs That Will Affect Care: None marital status: Current Living Situation: Spouse current occupational status: employed 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 [employer] How many Children do You have: 2 Feels Safe at Home: Yes Safety Concerns: Feels Safe At This Time Childhood Exposure to Second-Hand Smoke: Yes caffeine: Yes Dental Care, Regularly: Yes Physical Activity Frequency: 5-6 Times per Week Physical Activity Frequency Comment: walking Seatbelt Use: always Sunscreen Use: Yes Assistive Devices: Glasses Assistive Devices Comment: glasses not at hosptial Review of Systems Review of Systems: All systems reviewed & are unremarkable except as noted in HPI & below Physical Exam Constitutional: well developed and well nourished; no acute distress Neck: normal visual inspection Respiratory: normal respiratory effort; no respiratory distress and no labored breathing Musculoskeletal: Head/Neck/Chest: normocephalic Skin: No visible rashes or lesions to exposed skin areas Neurologic: moves all extremities and awake Psychiatric: A+Ox3, euthymic affect Results & Data Vital Signs (Past 12 Hours) Vital Signs Temp Pulse Pulse Resp BP Pulse Ox O2 Del Method 01/31/24 08:14 36.7 C 59 L 18 129/82 99 Room Air 01/31/24 04:35 36.8 C 58 L 17 122/79 96 Room Air 01/31/24 03:32 79 01/31/24 02:07 138 H 01/30/24 23:34 36.6 C 74 18 111/80 97 Room Air PG Care Time/CCT Total # of Minutes Spent Total Time Spent with Patient: Total time spent is greater than 50% in coordination of care (as documented) at patient's floor/unit and/or counseling patient: Coding Level of Care Code 98104 IN/OBS CONSULT LVL 5,80M Diagnoses Left ureteral stone N20.1 Hydronephrosis N13.30 Renal colic N23
[2024-01-31] MEDS ORDERED: HYDROmorphone INJ 0.5 MG/0.5 ML SYR IV PRN (11:00)
[2024-01-31] MEDS: HYDROmorphone INJ 1 MG/ML SYRINGE IV PRN (13:39)
--- NOTE | 2024-01-31 14:08 | XCELERA ---
[id number]
[2024-01-31] MEDS ORDERED: ONDANSETRON INJ 2 MG/ML 2 ML VIAL ONE (14:58)
[2024-01-31] MEDS ORDERED: fentaNYL citrate PF 100 MCG/2 ML VIAL ONE (14:58)
[2024-01-31] MEDS ORDERED: DEXAMETHASONE SOD INJ 4 MG/ML VIAL ONE (14:58)
[2024-01-31] MEDS ORDERED: LIDOCAINE 2% 2 ML VIAL/AMP(20MG/ML) INFIL ONE (14:58)
[2024-01-31] MEDS ORDERED: PROPOFOL IV EMULSION 10 MG/ML 20 ML VIAL IV ONE ×2 (14:58→15:24)
[2024-01-31] MEDS ORDERED: KETOROLAC 30 MG/ML VIAL ONE (14:58)
[2024-01-31] MEDS ORDERED: PROMETHAZINE HCL 6.25 MG in SODIUM CHLORIDE 0.9% 50 ML IV PRN (15:06)
[2024-01-31] MEDS ORDERED: ONDANSETRON INJ 2 MG/ML 2 ML VIAL IV PRN ×2 (15:06→15:15)
[2024-01-31] MEDS ORDERED: ePHEDrine sulfate 50 MG/ML AMP IV PRN ×2 (15:06→15:15)
[2024-01-31] MEDS ORDERED: HYDROmorphone INJ 2 MG/ML SYR/VIAL IV PRN (15:06)
[2024-01-31] MEDS ORDERED: fentaNYL citrate PF 100 MCG/2 ML VIAL IV PRN ×2 (15:06→15:15)
[2024-01-31] MEDS ORDERED: ATROPINE SULFATE 0.1 MG/ML 10ML SYR IV PRN ×2 (15:06→15:15)
--- NOTE | 2024-01-31 15:06 | Anesthesiology Consultation ---
Date of Service January 31, 2024 Assessment & Plan Chart Review Chart Review: Acceptable Risk for Surgery Consults Requested none History Surgery Operation Date: 01/31/24 07:50 Proposed Procedures p Cystoscopy, Left Retrograde Pyelogram, Left Stent Placement, Possible Ureteroscopy, Laser Lithotripsy - Albert Grant DO Height/Weight Height: 6 ft 1 in Weight: 107.3 kg Allergies Allergy/AdvReac Type Severity Reaction Status Date / Time No Known Allergies Allergy Verified 01/30/24 18:10 Medications Home Medications Medication Instructions Recorded Confirmed Last Taken cetirizine 10 mg capsule (Zyrtec) 10 mg PO QAM 09/10/23 01/30/24 01/29/24 ibuprofen 200 mg tablet (Advil) 400 - 600 mg PO Q6H PRN Pain 01/30/24 01/30/24 Unknown Active Medications Generic Name Dose Route Start Last Admin Trade Name Freq PRN Reason Stop Dose Admin Hydromorphone HCl 1 mg 01/31/24 11:00 01/31/24 13:39 Hydromorphone Inj 1 Mg/Ml Syringe IV 02/13/24 20:14 1 mg Q3H PRN Administration Severe Pain (7,8,9,10) on NRS Ceftriaxone Sodium 2,000 mg/ 50 mls @ 100 mls/hr 01/30/24 20:00 01/30/24 22:37 Dextrose IV 02/04/24 19:59 Infused Q24H PRISCILLA Infusion Protocol Heparin Sodium/Dextrose 25,000 units in 500 mls @ 0 mls/hr 01/30/24 22:30 01/31/24 11:02 Heparin Sodium/Dextrose IV 02/29/24 22:29 0 units/hr .Q0M PRISCILLA 0 mls/hr Titration Protocol Parenteral Electrolytes 1,000 mls @ 125 mls/hr 01/30/24 21:30 01/31/24 07:37 Plasma-Lyte A Ph 7.4 IV 02/29/24 21:29 125 mls/hr .Q8H PRISCILLA Administration Insulin Aspart 0 units 01/30/24 21:00 01/31/24 12:16 Insulin Aspart Per Unit Charge SC 02/29/24 20:59 Not Given ACHS PRISCILLA Metoprolol Tartrate 25 mg 01/30/24 19:55 01/31/24 08:30 Metoprolol Tartrate 25 Mg Tab PO 02/29/24 19:54 Not Given BID PRISCILLA NPO Date Last Intake of Fluids: 01/30/24 Time Last Intake of Fluids: 23:55 Date Last Intake of Solids: 01/28/24 Past Medical History Medical History Lyme disease 07/2023- per PCP records- completed course of Doxy- symptoms resolved Dupuytren's contracture of both hands Past Family History Family History Mother Lung cancer Stroke Myocardial infarction Heart disease Denies family history of Ovarian cancer Prostate cancer Diabetes Breast cancer Colorectal cancer Hypertension Past Surgical History Surgical History Status post Dupuytren's fasciectomy 09/23/23--Right small finger Dupuytren's fasciectomy, palm and finger with release of proximal interphalangeal joint, including volar PIP capsulotomy History of tooth extraction per pt, given propofol; no issues Social History Smoking Status: Never smoker Do You Dip or Chew Tobacco: No Hx Alcohol Use: No Alcohol type: beer Hx Substance Use: No substance use type: does not use Physical Exam Vital Signs Last Vital Signs Temp 36.8 C 01/31/24 14:20 Pulse 57 L 01/31/24 14:20 Resp 18 01/31/24 14:20 BP 140/75 01/31/24 14:20 Pulse Ox 98 01/31/24 14:20 O2 Del Method Room Air 01/31/24 14:20 Testing Laboratory Results 01/31/24 05:43 01/31/24 05:43 PT 12.4 Seconds (9.0-12.0) H 01/30/24 15:54 INR 1.1 (0.9-1.1) 01/30/24 15:54 APTT 26 Seconds (21-31) 01/30/24 15:54 Hemoglobin A1c 5.1 % (4.5-5.6) 01/30/24 15:54 Urine Color Yellow 01/30/24 15:54 Urine Appearance Clear (Clear) 01/30/24 15:54 Urine pH 6.0 (4.5-7.5) 01/30/24 15:54 Ur Specific [place] 1.010 (1.000-1.030) 01/30/24 15:54 Urine Protein Negative (Negative) 01/30/24 15:54 Urine Glucose (UA) Trace (Negative) H 01/30/24 15:54 Urine Ketones 3+ (Negative) H 01/30/24 15:54 Urine Nitrite Negative (Negative) 01/30/24 15:54 Ur Leukocyte Esterase Negative (Negative) 01/30/24 15:54 Urine WBC (Auto) 1-5 /hpf (0-5) 01/30/24 15:54 Urine RBC (Auto) 0-4 /hpf (0-4) 01/30/24 15:54 U Hyaline Cast (Auto) 0 /lpf (0-5) 01/30/24 15:54 U Epithel Cells (Auto) 5-10 /lpf (0-5) H 01/30/24 15:54 Urine Bacteria (Auto) Negative (Negative) 01/30/24 15:54 01/31/24 01/31/24 11:39 08:12 POC Glucose 103 H 103 H
--- NOTE | 2024-01-31 15:09 | Anesthesiology Consultation ---
Date of Service January 31, 2024 Assessment & Plan Chart Review Chart Review: Acceptable Risk for Surgery Consults Requested none ASA ASA2 Proposed Anesthesia Anesthesia Type: General Risk / Benefits Reviewed With: PT / POA / Parent / Guardian, Accepts Plan and Informed Consent Obtained History Surgery Operation Date: 01/31/24 07:50 Proposed Procedures p Cystoscopy, Left Retrograde Pyelogram, Left Stent Placement, Possible Ureteroscopy, Laser Lithotripsy - Albert Grant, DO Height/Weight Height: 6 ft 1 in Weight: 107.3 kg Allergies Allergy/AdvReac Type Severity Reaction Status Date / Time No Known Allergies Allergy Verified 01/30/24 18:10 Medications Home Medications Medication Instructions Recorded Confirmed Last Taken cetirizine 10 mg capsule (Zyrtec) 10 mg PO QAM 09/10/23 01/30/24 01/29/24 ibuprofen 200 mg tablet (Advil) 400 - 600 mg PO Q6H PRN Pain 01/30/24 01/30/24 Unknown Active Medications Generic Name Dose Route Start Last Admin Trade Name Freq PRN Reason Stop Dose Admin Hydromorphone HCl 1 mg 01/31/24 11:00 01/31/24 13:39 Hydromorphone Inj 1 Mg/Ml Syringe IV 02/13/24 20:14 1 mg Q3H PRN Administration Severe Pain (7,8,9,10) on NRS Ceftriaxone Sodium 2,000 mg/ 50 mls @ 100 mls/hr 01/30/24 20:00 01/30/24 22:37 Dextrose IV 02/04/24 19:59 Infused Q24H PRISCILLA Infusion Protocol Heparin Sodium/Dextrose 25,000 units in 500 mls @ 0 mls/hr 01/30/24 22:30 01/31/24 11:02 Heparin Sodium/Dextrose IV 02/29/24 22:29 0 units/hr .Q0M PRISCILLA 0 mls/hr Titration Protocol Parenteral Electrolytes 1,000 mls @ 125 mls/hr 01/30/24 21:30 01/31/24 07:37 Plasma-Lyte A Ph 7.4 IV 02/29/24 21:29 125 mls/hr .Q8H PRISCILLA Administration Insulin Aspart 0 units 01/30/24 21:00 01/31/24 12:16 Insulin Aspart Per Unit Charge SC 02/29/24 20:59 Not Given ACHS PRISCILLA Metoprolol Tartrate 25 mg 01/30/24 19:55 01/31/24 08:30 Metoprolol Tartrate 25 Mg Tab PO 02/29/24 19:54 Not Given BID PRISCILLA NPO Date Last Intake of Fluids: 01/30/24 Time Last Intake of Fluids: 23:55 Date Last Intake of Solids: 01/28/24 Past Medical History Medical History (Updated 01/31/24 @ 15:12 by Edith Nixon DO) HTN (hypertension) Left ureteral stone Impaired fasting glucose Afib Lyme disease 07/2023- per PCP records- completed course of Doxy- symptoms resolved Dupuytren's contracture of both hands Exercise / Class Metabolic Activity II 4-5 Yardwork/Stairs/Walk up hill Past Family History Family History Mother Lung cancer Stroke Myocardial infarction Heart disease Denies family history of Ovarian cancer Prostate cancer Diabetes Breast cancer Colorectal cancer Hypertension Past Surgical History Surgical History (Updated 01/31/24 @ 15:12 by Edith Nixon DO) Hx of colonoscopy Status post Dupuytren's fasciectomy 09/23/23--Right small finger Dupuytren's fasciectomy, palm and finger with release of proximal interphalangeal joint, including volar PIP capsulotomy History of tooth extraction per pt, given propofol; no issues Past Anesthesia History No Hx of Anesthesia Complications and No Family Hx of Anesthesia Complications History of PONV No Hx of PONV and No Hx of Motion Sickness Social History Smoking Status: Never smoker Do You Dip or Chew Tobacco: No Hx Alcohol Use: No Alcohol type: beer Hx Substance Use: No substance use type: does not use Physical Exam Vital Signs Last Vital Signs Temp 36.8 C 01/31/24 14:20 Pulse 57 L 01/31/24 14:20 Resp 18 01/31/24 14:20 BP 140/75 01/31/24 14:20 Pulse Ox 98 01/31/24 14:20 O2 Del Method Room Air 01/31/24 14:20 ENMT Mouth: no TMJ abnormality Thyromental Distance: > or= 3.5 Finger Breadths Mallampati Class: II Neck normal visual inspection and trachea midline; neck extension not limited Respiratory normal respiratory effort Auscultation: lungs clear to auscultation bilaterally Cardiovascular Rate/Rhythm: regular rate and regular rhythm Heart Sounds: no murmur Musculoskeletal Spine: normal cervical ROM Extremities: full ROM of extremities Neurologic moves all extremities Psychiatric Orientation: alert and oriented x 3 Testing Laboratory Results 01/31/24 05:43 01/31/24 05:43 PT 12.4 Seconds (9.0-12.0) H 01/30/24 15:54 INR 1.1 (0.9-1.1) 01/30/24 15:54 APTT 26 Seconds (21-31) 01/30/24 15:54 Hemoglobin A1c 5.1 % (4.5-5.6) 01/30/24 15:54 Urine Color Yellow 01/30/24 15:54 Urine Appearance Clear (Clear) 01/30/24 15:54 Urine pH 6.0 (4.5-7.5) 01/30/24 15:54 Ur Specific [place] 1.010 (1.000-1.030) 01/30/24 15:54 Urine Protein Negative (Negative) 01/30/24 15:54 Urine Glucose (UA) Trace (Negative) H 01/30/24 15:54 Urine Ketones 3+ (Negative) H 01/30/24 15:54 Urine Nitrite Negative (Negative) 01/30/24 15:54 Ur Leukocyte Esterase Negative (Negative) 01/30/24 15:54 Urine WBC (Auto) 1-5 /hpf (0-5) 01/30/24 15:54 Urine RBC (Auto) 0-4 /hpf (0-4) 01/30/24 15:54 U Hyaline Cast (Auto) 0 /lpf (0-5) 01/30/24 15:54 U Epithel Cells (Auto) 5-10 /lpf (0-5) H 01/30/24 15:54 Urine Bacteria (Auto) Negative (Negative) 01/30/24 15:54 01/31/24 01/31/24 11:39 08:12 POC Glucose 103 H 103 H Electrocardiogram Date: 01/30/24 Findings: + AFIB @ (104) Echocardiogram Date: 01/31/24 EF: 60 LV Function: normal RWMA: + none Other Findings: + LVH
[2024-01-31] MEDS ORDERED: MEPERIDINE HCL 25 MG/ML CARP/VIAL IV PRN (15:15)
[2024-01-31] MEDS ORDERED: LABETALOL HCL IV 5 MG/ML 20ML IV PRN (15:15)
[2024-01-31] MEDS ORDERED: MoRPHine SULFATE 10 MG/ML CARP/VIAL IV PRN (15:15)
[2024-01-31] MEDS ORDERED: SODIUM CHLORIDE 0.9% PF INJ 10 ML VIAL ONE ×2 (15:33→15:52)
[2024-01-31] MEDS: ceFAZolin 2000MG 2,000 MG/15 ML SYR IV ONE (15:33)
[2024-01-31] MEDS ORDERED: ceFAZolin 330 MG/ML 1 GM VIAL ONE (15:33)
[2024-01-31] MEDS ORDERED: ePHEDrine sulfate 50 MG/ML AMP ONE (15:52)
[2024-01-31] MEDS: DIATRIZOATE MEGLUMINE 30% 100ML VIAL INSTIL PRN (16:07)
--- NOTE | 2024-01-31 16:15 | Operative Report ---
[facility] Post Operative Report Pre & Post Diagnosis Operation Date: 01/31/24 07:50 Pre-Op Diagnosis: (1) Left ureteral stone (2) Hydronephrosis (3) Renal colic Post-Op Diagnosis: (1) Left ureteral stone (2) Hydronephrosis (3) Renal colic I identified the patient and participated in the time-out.: Yes Procedure Operation Date: 01/31/24 07:50 Actual Procedures p Cystoscopy with Left Ureteroscopy, Retrograde Pyelogram, Ureteral Dilation, Left Stent Placement, Stone Basket Extraction, Laser Lithotripsy(Left) - Albert Grant DO Surgeon Albert Grant, II, DO Director Of Pupil Personnel Program None Estimated Blood Loss 1 Findings Consistent with Post-Op Diagnosis Very large stone impacted in the lateral wall of the distal ureter with significant stricture. Severe hydronephrosis of the ureter and kidney. Stone destroyed to dust and small fragments and larger fragments removed. Specimens Stone Fragments - Left Ureteral Drains 6 Fr Multilength Anesthesia Type General Complications none Disposition Disposition: Recovery Room Indications Patient with bothersome stones. Risks and benefits discussed at length. Description of Procedure Patient was consented and brought back to the operating room. Patient was placed under anesthesia in the supine position and moved to the dorsal lithotomy position. Patient was prepped and draped in the regular sterile fashion. A time out was completed. A 30degree Cystoscope was placed into the bladder and the entire bladder was examined. The UO's were identified. The UO was cannulized with a catheter and a retrograde pyelogram was completed. A wire was then placed. The Rigid ureteroscope was taken into the ureter. The stone was identified. The stone was large and causing severe obstruction. The Stone was impacted in the side wall and a significant stricture was noted. The stone was displaced. The stricture was dilated. The stone was better accessed. A laser fiber was selected and the stones were pulverized to dust and small fragments. Larger fragments were grasped and removed and sent for analysis. The entire area was once again examined. No residual large fragments or areas of concern were noted. The scope was slowly removed with the wire left in place. Contrast was placed through the scope for a pyelogram to assist in stent placement. The entire ureter was examined as the scope was slowly removed. No obstructions or other areas of concern were noted. With the wire in place, a 6 Fr Double J stent was placed. It was confirmed with fluoroscopy. With the stent in place, the bladder was emptied. The scope was removed. The patient was cleaned, aroused from anesthesia, and transferred to the pacu in stable condition having tolerated the procedure well with no complications. I was present and participated in all aspects of the procedure. The patient will be monitored in the PACU until transferred. Followup for stent removal in approx 7-10 days. I attest to the content of the Intraoperative Record and any orders documented therein. Any exceptions are noted below.
--- NOTE | 2024-01-31 16:50 | Fluoroscopy Report ---
FL retrograde includes kub CLINICAL HISTORY: LEFT STENT PLACEMENT/ ADD ON COMPARISON STUDY: None. FLUOROSCOPY TIME: 19 seconds. FLUOROSCOPY IMAGES: 3 Ka,r: 6.97 mGy FINDINGS: Retrograde opacification of the left renal collecting system followed by placement of a lef t ureteral stent. The ureteral stent appears in good position. IMPRESSION: Fluoroscopic assistance as above. ACT 112: Negative or not required by law. Electronically signed by: Jayden Davila M.D. 01/31/2024 4:49 PM
--- NOTE | 2024-01-31 20:20 | Hospitalist Progress Note ---
Date of Service January 31, 2024 Assessment & Plan (1) Nephrolithiasis: Plan: 9 x 12 mm obstructing stone - distal left ureter with hydronephrosis. [facility] [place] Urology consultation appreciated. Given the large size of the stone he was taken to the OR today by Dr Albert Grant. Following was performed - Cystoscopy with Left Ureteroscopy, Retrograde Pyelogram, Ureteral Dilation, Left Stent Placement, Stone Basket Extraction, Laser Lithotripsy. Portion of stone sent for analysis. There are no other stones on the admission CT. We discussed hydration measures for prevention, etc. Fortunately he is does not drink copious amounts of caffeinated beverages, etc. Rocephin was given empirically while blood cultures were pending. Cultures thus far negative. Will give a dose tonight but if cultures are negative tomorrow will d/c. (2) Afib: Plan: Having runs of a.fib and a.flutter on telemetry. Suspect he had PAF during his colonoscopy in 12/2023. When he is in NSR his HRs are 50s and low 60s. Ideally he is on beta ernesto but this am his 25mg dose of meto tartrate was held because of the bradycardia. Will lower dose to 12.5mg BID. He asked for a formal cardiology consult - will ask Dr Stein to see him in consult for additional recs. Echo today - normal EF, normal valve function. K/mag wnl. Check TSH am. CHADs-VASC score - 1 for HTN, which is low-moderate risk for stroke. We extensively discussed anticoagulation. Will not initiate any AC tonight given his gross hematuria from his urological procedure. Additional discussions can be held with cardiology tomorrow. Suspect the volume of his a.fib and a.flutter will improve as katie-operative physical stress will decrease considerably leading to less catecholamine production, etc. Continue telemetry. (3) Impaired fasting glucose: Plan: history of such but hemoglobin a1c is 5.1%. minor elevations in BSGs today are due to dexamethasone IV given during his surgery today. a1c is NOT c/w DM or even pre-DM. Plan DVT proph - ambulation Having hematuria from his urological procedure - will not resume heparin infusion See #2 above re: anticoagulation lower IV fluid rate to 50cc/hr allow diet as tolerated BMP am /daughter updated at bedside likely can d/c home tomorrow following cardiology consultation Admission and Anticipated Discharge Date Admission Date: January 30, 2024 Subjective tele overnight - episodes of a.fib and a.flutter with the majority of the time in NSR patient states that last night he had some palpitations saw patient post-cystoscopy his abd pain was RESOLVED he had hematuria with his first void following surgery he is hungry he has never had a kidney stone before patient reports that during a colonoscopy in the past he had a narrow complex tachycardia the anesthesiologist gave him a beta ernesto and it resolved the run was very brief per his recollection patient states that years ago when he had Lyme disease he had high blood sugars and his BPs were high however, since then, he has not received any formal dx of HTN or DM or pre-DM he has, however, been checking his BPs at home majority of them are 140s and some 130s Review of Systems Review of Systems: gen - no fevers cv - no chest pain or orthopnea pulm - no dyspnea GI - no abd pain or N/V since his cystoscopy Physical Exam Physical Exam: gen - NAD, looks good, sweaty skin mouth - MMM neck - no JVD heart - hilda, s1 s2, no murmur lungs - CTA b/l abd - soft NT ND BS+ ext - no edema, pulses 2+ b/l Results & Data Results & Data Vital Signs (Past 12 Hours) Vital Signs Temp Pulse Pulse Resp BP BP Pulse Ox 01/31/24 20:13 36.8 C 57 L 19 137/76 98 01/31/24 18:00 53 L 18 156/85 H 96 01/31/24 17:30 59 L 18 134/85 97 01/31/24 16:56 36.7 C 59 L 12 134/77 99 01/31/24 16:45 71 21 120/66 100 01/31/24 16:35 79 18 138/76 100 01/31/24 16:25 71 14 130/68 100 01/31/24 16:18 36.5 C 75 15 126/80 99 01/31/24 14:20 36.8 C 57 L 18 140/75 98 01/31/24 11:52 36.9 C 56 L 16 135/83 97 O2 Del Method O2 Flow Rate 01/31/24 20:13 Room Air 01/31/24 18:00 Room Air 01/31/24 17:30 Room Air 01/31/24 16:56 Room Air 01/31/24 16:45 Room Air 01/31/24 16:35 Oxymask 1 01/31/24 16:25 Oxymask 3 01/31/24 16:18 Oxymask 5 01/31/24 14:20 Room Air 01/31/24 11:52 Room Air Laboratory Results Laboratory Results - last 24 hr 01/30/24 01/31/24 01/31/24 15:54 05:43 08:12 WBC 9.56 RBC 4.60 L Hgb 14.3 D Hct 40.9 L MCV 88.9 D MCH 31.1 MCHC 35.0 RDW Std Deviation 42.1 RDW Coeff of Michael 12.9 Plt Count 138 MPV 8.6 L Immature Gran % (Auto) 0.5 Neut % (Auto) 71.6 Lymph % (Auto) 15.1 [place] % (Auto) 12.1 Eos % (Auto) 0.3 Baso % (Auto) 0.4 Neut # (Auto) 6.84 H Lymph # (Auto) 1.44 [place] # (Auto) 1.16 H Eos # (Auto) 0.03 Baso # (Auto) 0.04 Immature Gran # (Auto) 0.05 Heparin Anti-Xa, Unfract 0.13 L Sodium 133 L Potassium 3.8 Chloride 103 Carbon Dioxide 23 Anion Gap 7 BUN 16 Creatinine 1.04 Est Cr Clr Drug Dosing 95.9 Est GFR ( Amer) 89.4 Est GFR (Non-Af Amer) 77.1 BUN/Creatinine Ratio 15.4 Glucose 106 H POC Glucose 103 H Estimat Average Glucose 100 Hemoglobin A1c 5.1 Calcium 8.2 L Magnesium 1.9 01/31/24 01/31/24 01/31/24 11:39 18:09 20:42 WBC RBC Hgb Hct MCV MCH MCHC RDW Std Deviation RDW Coeff of Michael Plt Count MPV Immature Gran % (Auto) Neut % (Auto) Lymph % (Auto) [place] % (Auto) Eos % (Auto) Baso % (Auto) Neut # (Auto) Lymph # (Auto) [place] # (Auto) Eos # (Auto) Baso # (Auto) Immature Gran # (Auto) Heparin Anti-Xa, Unfract Sodium Potassium Chloride Carbon Dioxide Anion Gap BUN Creatinine Est Cr Clr Drug Dosing Est GFR ( Amer) Est GFR (Non-Af Amer) BUN/Creatinine Ratio Glucose POC Glucose 103 H 116 H 165 H Estimat Average Glucose Hemoglobin A1c Calcium Magnesium PG Care Time/CCT Total # of Minutes Spent Total Time Spent with Patient: Total time spent is greater than 50% in coordination of care (as documented) at patient's floor/unit and/or counseling patient: Coding Level of Care Code 41344 SUB INP/OBS CARE 2/35MIN Diagnoses Nephrolithiasis N20.0 Afib I48.91 Impaired fasting glucose R73.01
[2024-01-31] MEDS: ACETAMINOPHEN 325 MG TAB PO PRN (20:25)
[2024-01-31] MEDS: METOPROLOL TARTRATE 25 MG TAB PO SCH (20:50)
[2024-01-31] MEDS: LORazepam 0.25 MG in SYRINGE 0.125 ML IV STA (21:49)
[2024-02-01 07:15] LABS: Basophils # (auto) 0.01 K/uL (0.00-0.20); Basophils % (auto) 0.1 %; Hematocrit (blood only) 39.4 % (42.0-52.0); Hemoglobin 14.1 g/dl (14.0-18.0); Immature Granulocytes # (auto) 0.07 K/uL (0.01-0.20); Immature Granulocytes % (auto) 0.8 %; Lymphocytes # (auto) 0.69 K/uL (1.20-3.40); Lymphocytes % (auto) 7.8 %; Mean Corpuscular Hgb Conc 35.8 g/dL (32.0-36.0); Mean Corpuscular Volume 86.6 fL (80.0-100.0); Mean Platelet Volume 9.3 fL (9.4-12.4); Monocytes # (auto) 0.77 K/uL (0.11-0.59); Monocytes % (auto) 8.8 %; Neutrophils # (auto) 7.26 K/uL (1.40-6.50); Neutrophils % (auto) 82.5 %; Platelet Count 126 K/uL (130-400); RDW Coefficient of Variation 12.3 % (11.5-14.5); RDW Standard Deviation 39.2 fL (36.4-46.3); Red Blood Count 4.55 M/uL (4.70-6.10)
[2024-02-01 07:43] LABS: BUN Creatinine Ratio 19.4 (10-20); Calcium 8.7 mg/dl (8.6-10.3); Creatinine Clr Calc Pharmacy 92.3 ml/min; Est GFR (African American) 85.4 ml/min; Est GFR (Non-African American) 73.7 ml/min; Potassium 4.1 mmol/L (3.5-5.1)
[2024-02-01 07:50] LABS: Thyroid Stimulating Hormone 0.269 uIu/ml (0.300-4.500)
--- NOTE | 2024-02-01 08:11 | Urology Progress Note ---
Date of Service February 01, 2024 Assessment & Plan (1) Hydronephrosis: (2) Left ureteral stone: Plan 63yo M admitted with intractable pain secondary to an obstructing 12x9mm distal left ureteral stone and Afib. - POD #1 s/p Cystoscopy with Left Ureteroscopy, Retrograde Pyelogram, Ureteral Dilation, Left Stent Placement, Stone Basket Extraction, Laser Lithotripsy with Dr. Grant - Tolerating the stent with minimal bother. - Afebrile and hemodynamically stable. - Labs reviewed - WBC 8.80, Creatinine 1.08. - UA without signs of infection. - Blood cultures prelim no growth x 24 hours. - No further intervention warranted. - Will arrange outpatient follow-up for stent removal. - Can consider tamsulosin and prn pyridium for any stent discomfort. - Urology will sign off. Please call with any further questions or concerns. Admission and Anticipated Discharge Date Admission Date: January 30, 2024 Subjective Patient examined at bedside this a.m. Awake, resting in bed on arrival. No acute distress. Tolerating the stent with minimal bother. Voiding without issue, some hematuria and dysuria. Left sided flank/abdominal pain has resolved. Denies fever, chills, nausea, vomiting. Review of Systems Constitutional: as per Subjective / HPI Gastrointestinal: as per Subjective / HPI Genitourinary: + as per Subjective / HPI Physical Exam Constitutional: no acute distress Respiratory: no respiratory distress and no labored breathing Skin: No visible rashes or lesions to exposed skin areas Neurologic: awake Psychiatric: A+Ox3, euthymic affect Results & Data Vital Signs (Past 12 Hours) Vital Signs Temp Pulse Pulse Resp BP BP Pulse Ox 02/01/24 07:39 36.8 C 88 20 172/101 H 97 02/01/24 03:03 36.8 C 62 17 125/69 97 01/31/24 23:54 36.7 C 68 17 128/77 97 01/31/24 22:21 74 01/31/24 20:13 36.8 C 57 L 19 137/76 98 O2 Del Method 02/01/24 07:39 Room Air 02/01/24 03:03 Room Air 01/31/24 23:54 Room Air 01/31/24 22:21 01/31/24 20:13 Room Air PG Care Time/CCT Total # of Minutes Spent Total Time Spent with Patient: Total time spent is greater than 50% in coordination of care (as documented) at patient's floor/unit and/or counseling patient: Coding Level of Care Code 53313 SUB INP/OBS CARE 235MIN Diagnoses Hydronephrosis N13.30 Left ureteral stone N20.1
[2024-02-01 08:27] LABS: T4 Free Thyroxine 1.52 ng/dl (0.61-1.60)
[2024-02-01] MEDS: METOPROLOL TARTRATE 1 MG/ML VIAL IV STA (10:33)
[2024-02-01] MEDS: LORazepam 1 MG TAB SL STA (10:33)
[2024-02-01] MEDS: METOPROLOL TARTRATE 25 MG TAB PO SCH (11:17)
--- NOTE | 2024-02-01 11:32 | Cardiology Consultation ---
Date of Consultation February 01, 2024 Assessment & Plan (1) Afib: Plan 1. Atrial fibrillation: Unclear duration. He presented in atrial fibrillation but has cycled back and forth between sinus rhythm and atrial fibrillation. Unclear if he has had occult episodes in the past. He does take his blood pressure at home and has not noticed any high heart rates. I think he would be unlikely that he was having frequent episodes. Certainly not symptomatic. Whether this was all precipitated by his acute illness is unclear. He has some risk factors for atrial fibrillation to include history of high blood pressure and age. Perhaps some mild left atrial enlargement on his echocardiogram. He does not appear to have symptoms consistent with obstructive sleep apnea. No significant valvular disease on his echocardiogram. While his TSH is somewhat low, the free T4 was in the normal range suggesting he does not have a thyroid abnormality. Despite a relative bradycardia, I would agree with low-dose metoprolol. He received a total of 25 mg metoprolol tartrate already today. His heart rate stays reasonable I think he could get another 25 mg this evening. He seems to be cycling in and out of atrial fibrillation fairly rapidly. Whether this will improve as his clinical condition improves is unclear. However, I think would be reasonable to start flecainide as well. The need for chronic flecainide could be addressed in the outpatient setting. I would recommend initiation of systemic anticoagulation. 20 mg daily or Eliquis 5 mg daily, whichever he prefers. No urgency for initiation. We can wait until his hematuria resolves or it is felt to be safe by the urology service. History of Present Illness Reason for Consultation: Atrial fibrillation Requesting Physician: Chas Attending Physician: Denise Sosa MD History of Present Illness The patient is a 63-year-old gentleman who presents to the hospital with symptoms constipation of flank discomfort. Patient was noted to have an obstructing ureteral stone. He underwent cystoscopic removal. He was noted at the time of presentation to have atrial fibrillation associated high ventricular rates. He transition between sinus rhythm in atrial fibrillation a few times during this hospitalization. This morning the patient again has atrial fibrillation and high ventricular rates. He states that this causes some sense of burning in the precordium. He is also aware of the hi gher heart rate. Curiously, he has been monitoring his own heart rate and telemetry with the portable unit. Patient 1st began to notice symptoms mild abdominal discomfort and constipation a few days ago. This progressed to include flank pain and discomfort in the perineum. Subsequent 2 cystoscopy and stone removal his symptoms have improved markedly. He did develop an element of hematuria. Patient states in general he is an active individual. He is able to perform strenuous activity such as shoveling snow. He has some mild dyspnea with extremes of activity, but generally this is not limiting problem. No exertional chest pain. Generally speaking no symptoms of palpitations. He denies lightheadedness. No recent history of syncope. No lower extremity edema. He did not report difficulty sleeping. He did not report snoring at nighttime. Allergies Allergy/AdvReac Type Severity Reaction Status Date / Time No Known Allergies Allergy Verified 01/30/24 18:10 Home Medications Medication Instructions Recorded Confirmed Type cetirizine 10 mg capsule (Zyrtec) 10 mg PO QAM 09/10/23 01/30/24 History ibuprofen 200 mg tablet (Advil) 400 - 600 mg PO Q6H PRN Pain 01/30/24 01/30/24 History Patient History Medical History (Updated 01/31/24 @ 15:12 by Edith Nixon DO) HTN (hypertension) Left ureteral stone Impaired fasting glucose Afib Lyme disease 07/2023- per PCP records- completed course of Doxy- symptoms resolved Dupuytren's contracture of both hands Surgical History (Updated 01/31/24 @ 15:12 by Edith Nixon DO) Hx of colonoscopy Status post Dupuytren's fasciectomy 09/23/23--Right small finger Dupuytren's fasciectomy, palm and finger with release of proximal interphalangeal joint, including volar PIP capsulotomy History of tooth extraction per pt, given propofol; no issues Family History Mother Lung cancer Stroke Myocardial infarction Heart disease Denies family history of Ovarian cancer Prostate cancer Diabetes Breast cancer Colorectal cancer Hypertension Social History Smoking Status: Never smoker Second Hand Exposure: No; Do You Dip or Chew Tobacco: No; Hx Alcohol Use: No Hx Substance Use: No Preferred Language: Greek Communication Ability: Effective Visual Impairment: Limited Hearing Ability: Normal Java Project Manager Required: No Beliefs That Will Affect Care: None marital status: Current Living Situation: Spouse current occupational status: employed 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 Mood and affect appeared normal. He answered all questions appropriately. HEENT: Pupils are equal and reactive to light and accommodation. Extraocular movements are intact. The sclerae are anicteric. Neuro: Cranial nerves intact Lungs: Clear to auscultation bilaterally. He has good air movement without use of accessory muscles. No rales wheezes or rhonchi. Cardiac: Heart demonstrates an irregular rate and rhythm. Normal S1 and S2. No murmurs on examination. Pulses: The patient has palpable radial pulses bilaterally that are equal in intensity Extremities: There was no evidence of hypoperfusion. There is no cyanosis or clubbing. There is no edema. Skin: I did not appreciate any rashes on examination today. Results & Data Vital Signs (Past 12 Hours) Vital Signs Temp Pulse Pulse Resp BP BP BP 02/01/24 11:18 37 C 64 20 106/92 02/01/24 10:52 142 H 156/110 H 02/01/24 10:33 133 H 138/89 02/01/24 09:21 113 H 151/100 H 02/01/24 07:39 36.8 C 88 20 172/101 H 02/01/24 03:03 36.8 C 62 17 125/69 01/31/24 23:54 36.7 C 68 17 128/77 Pulse Ox O2 Del Method 02/01/24 11:18 97 Room Air 02/01/24 10:52 02/01/24 10:33 02/01/24 09:21 02/01/24 07:39 97 Room Air 02/01/24 03:03 97 Room Air 01/31/24 23:54 97 Room Air Diagnostic Findings Echocardiogram performed 01/31/2024: Normal LV systolic function with ejection fraction of 60-65%. Mild LVH. Borderline left atrial enlargement. An abdominal CT scan Obtained the time admission revealed an obstructing stone in the left ureter. ECG Additional Comments: EKG obtained at the time of admission revealed atrial fibrillation. Heart rate 104 beats per minute PG Care Time/CCT Total # of Minutes Spent Total Time Spent with Patient: Total time spent is greater than 50% in coordination of care (as documented) at patient's floor/unit and/or counseling patient: Coding Level of Care Code 14274 IN/OBS CONSULT LVL 4,60M Diagnoses Afib I48.91
[2024-02-01] MEDS: FLECAINIDE ACETATE 100 MG TABLET PO ONE (12:36)
[2024-02-01] MEDS ORDERED: bisacodyL 10 MG SUPP PR PRN (14:25)
--- NOTE | 2024-02-01 14:38 | Hospitalist Progress Note ---
Date of Service February 01, 2024 Assessment & Plan (1) Nephrolithiasis: Plan: 63 y/o presented with left sided flank/abdominal pain and rapid atrial fibrillation, new diagnosis 9 x 12 mm obstructing stone - distal left ureter with hydronephrosis. [facility] [place] Given the large size of the stone he was taken to the OR 01/[address] Albert Grant and underwent cystoscopy with Left Ureteroscopy, Retrograde Pyelogram, Ureteral Dilation, Left Stent Placement, Stone Basket Extraction, Laser Lithotripsy. Portion of stone sent for analysis - pending There are no other stones on the admission CT. -hematuria is clearing -follow up with Dr. Grant in office for stent removal/exchange (2) Afib: Plan: Having runs of a.fib and a.flutter on telemetry. 2h rapid afib/flutter this am, now in NSR Suspect he had PAF during his colonoscopy in 12/2023. TSH mildly low but fT4 normal range - recheck TSH at interval as outpatient Consulted Dr. Stein - discussed with him -ordered dose IV metoprolol this AM for rapid AF -continue metoprolol 25 mg bid -eventual anticoagulation with DOAC - discussed with urology - he will have ureteral stent for 7-10 days but ok to start anticoagulation at this time -flecainide initated by spanish tutor x 1 dose -continue tele (3) Impaired fasting glucose: Plan: history of such but hemoglobin a1c is 5.1%. minor elevations in BSGs are due to dexamethasone IV given during his surgery Plan /daughter updated at bedside 01/31 likely can d/c home tomorrow if rates remain better controlled Admission and Anticipated Discharge Date Admission Date: January 30, 2024 Subjective Feels better, urinary pain when voiding. 12/25. Significantly improved flank/bladder pain following stone procedure No shortness of breath or chest pain Physical Exam 2 Physical Exam: PHYSICAL EXAMINATION Last 24h vital signs reviewed, see documentation in flowsheet General: comfortable appearing, no distress HEENT: Normocephalic, atraumatic, pupils round and equal, sclerae anicteric, no conjunctival injection, moist mucus membranes Lungs: Normal respiratory effort. Clear to auscultation bilaterally. No RRW Heart: Regular rate and rhythm, no murmurs. No JVD Abdomen: Soft, nontender, nondistended. Bowel sounds present. Extremities: Warm, dry, well-perfused. No extremity edema. Neuro: Alert and oriented x 4, face symmetric, moves 4 extremities well Psych: Normal affect and behavior Results & Data Results & Data Vital Signs (Past 12 Hours) Vital Signs Temp Pulse Pulse Resp BP BP BP 02/01/24 11:18 37 C 64 20 106/92 02/01/24 10:52 142 H 156/110 H 02/01/24 10:33 133 H 138/89 02/01/24 09:21 113 H 151/100 H 02/01/24 07:39 36.8 C 88 20 172/101 H 02/01/24 07:00 52 L 02/01/24 03:03 36.8 C 62 17 125/69 Pulse Ox O2 Del Method 02/01/24 11:18 97 Room Air 02/01/24 10:52 02/01/24 10:33 02/01/24 09:21 02/01/24 07:39 97 Room Air 02/01/24 07:00 02/01/24 03:03 97 Room Air Laboratory Results 02/01/24 06:56 02/01/24 06:56 PG Care Time/CCT Total # of Minutes Spent Total Time Spent with Patient: Total time spent is greater than 50% in coordination of care (as documented) at patient's floor/unit and/or counseling patient: Coding Level of Care Code 25951 SUB INP/OBS CARE 3/50MIN Diagnoses Nephrolithiasis N20.0 Afib I48.91 Impaired fasting glucose R73.01
[2024-02-01] MEDS: bisacodyL 5 MG TABEC PO ONE (15:53)
[2024-02-01] MEDS: MELATONIN 3 MG TAB PO PRN (20:48)
[2024-02-01] MEDS: busPIRone 5 MG TAB PO SCH (20:48)
[2024-02-01] MEDS: FLECAINIDE ACETATE 100 MG TABLET PO SCH (20:48)
[2024-02-02 06:49] LABS: Basophils # (auto) 0.05 K/uL (0.00-0.20); Basophils % (auto) 0.6 %; Eosinophils # (auto) 0.06 K/uL (0.00-0.50); Eosinophils % (auto) 0.7 %; Hematocrit (blood only) 41.9 % (42.0-52.0); Hemoglobin 14.3 g/dl (14.0-18.0); Immature Granulocytes # (auto) 0.03 K/uL (0.01-0.20); Immature Granulocytes % (auto) 0.3 %; Lymphocytes # (auto) 2.38 K/uL (1.20-3.40); Lymphocytes % (auto) 27.5 %; Mean Corpuscular Hemoglobin 30.1 pg (25.0-34.0); Mean Corpuscular Hgb Conc 34.1 g/dL (32.0-36.0); Mean Corpuscular Volume 88.2 fL (80.0-100.0); Mean Platelet Volume 9.3 fL (9.4-12.4); Monocytes % (auto) 8.1 %; Neutrophils # (auto) 5.42 K/uL (1.40-6.50); Neutrophils % (auto) 62.8 %; Platelet Count 161 K/uL (130-400); RDW Coefficient of Variation 12.5 % (11.5-14.5); RDW Standard Deviation 40.8 fL (36.4-46.3); Red Blood Count 4.75 M/uL (4.70-6.10); White Blood Count 8.64 K/ul (4.8-10.8)
[2024-02-02 07:27] LABS: BUN Creatinine Ratio 21.2 (10-20); Calcium 8.7 mg/dl (8.6-10.3); Creatinine Clr Calc Pharmacy 88.2 ml/min; Est GFR (African American) 80.9 ml/min; Est GFR (Non-African American) 69.8 ml/min; Potassium 3.7 mmol/L (3.5-5.1)
--- NOTE | 2024-02-02 15:55 | Electrocardiogram Report ---
Test Reason : Blood Pressure : / mmHG Vent. Rate : 057 BPM Atrial Rate : 057 BPM P-R Int : 144 ms QRS Dur : 104 ms QT Int : 442 ms P-R-T Axes : 032 010 006 degrees QTc Int : 430 ms Sinus bradycardia with Premature supraventricular complexes Otherwise normal ECG When compared with ECG of 30-JAN-2024 19:44, Sinus rhythm has replaced Atrial fibrillation Vent. rate has decreased BY 47 BPM Criteria for Inferior infarct are no longer Present Confirmed by Víctor Stein ([id number]) on 02/02/2024 3:55:23 PM Referred By: REFERRED SELF Confirmed By:Jett Stein
--- NOTE | 2024-02-02 18:45 | Discharge Summary ---
Date of Service February 02, 2024 Admission HPI Per Admitting Provider Pritesh is a 63-year-old male with a past medical history of Dupuytren's contractures presents to the ER for abdominal pain of 3 days with constipation. Pain is worse with meals and induces nausea. CTA/P shows a 12 x 9 mm obstructing stone in the left distal ureter with moderate left hydro. Creatinine baseline is around 1, 1.27 on admissionUA is noninfected appearing S/p 1 L NSS in the ER Patient has a metabolic acidosis on admission. Patient seen in the ER for abdominal discomfort, nausea, vomiting and almost no p.o. intake since . Does not have an NANCY. No hematochezia, melena, hemoptysis. Denies chest pain, chest pressure, lightheadedness, dizziness, shortness of breath, fever, chills, sweats. Palpation of the abdomen does not worsen his pain. Patient reports he has a history of hypertension currently diet controlled but normally in the 140s. He is not sure if he has diabetes, no prior history but his fasting glucoses have been elevated and he was pending an outpatient A1c. Denies history of regular alcohol use, no tobacco history, denies history of AMANDA During exam patient does spontaneously convert from a rate of 70s to 80s to a narrow complex tachycardia with rate 150. Patient reports that he had a history of SVT with prior colonoscopy. Given this and sudden rate adenosine was prepared however with Valsalva maneuver patient did slow to a rate of approximately 100, EKG capture # A-fib and patient then maintained rate of approximately [id number]. 5 mg IV metoprolol was given with improvement in rate from 901 10 and repeat EKG was consistent with A-fib RVR. Additional metoprolol available on-call moved and oral metoprolol was initiated. Benefits of anticoagulation for stroke prophylaxis were discussed. As he has a [id number]- VASc of 0 reasonable to defer anticoagulation at this time Medical History: Reviewed Medications: Reviewed Surgical History: Reviewed Family history: Reviewed. Does have family history of A-fib in his mother, who also had cardiac disease and strokes past age 70 Allergies: Reviewed Social History: Reviewed Code Status: Full Principal Diagnosis obtructing left ureteral stone, new onset atrial flutter with rapid ventricular rate Discharge Exam PHYSICAL EXAMINATION Last 24h vital signs reviewed, see documentation in flowsheet General: comfortable appearing, no distress HEENT: Normocephalic, atraumatic, pupils round and equal, sclerae anicteric, no conjunctival injection, moist mucus membranes Lungs: Normal respiratory effort. Clear to auscultation bilaterally. No RRW Heart: Regular rate and rhythm, no murmurs. No JVD Abdomen: nondistended +BT Extremities: Warm, dry, well-perfused. No extremity edema. Neuro: Alert and oriented x 4, face symmetric, moves 4 extremities well Psych: Normal affect and behavior Discharge Data Allergies Allergy/AdvReac Type Severity Reaction Status Date / Time No Known Allergies Allergy Verified 01/30/24 18:10 Consultations 01/30/24 19:20 ED Decision to Admit Stat 01/30/24 20:15 Consult Urology Routine 02/01/24 08:00 Consult Cardiology Routine Procedures Performed Operation Date: 01/31/24 07:50 Actual Procedures p Cystoscopy, Left Retrograde Pyelogram, Left Stent Placement, Stone Basket Extraction, Laser Lithotripsy(Left) - Albert Grant, Ordered Studies 01/30/24 16:23 CT abd pelvis IV con only Stat 01/31/24 15:00 FL retrograde includes kub Routine Abdomen/Pelvis CT 01/30/24 16:[address] WITH IV CONTRAST CT DOSE: 1545.67 mGy.cm HISTORY: abdominal discomfort, vomiting TECHNIQUE: Multiaxial CT images of the abdomen and pelvis were performed following the use of intravenous contrast. A dose lowering technique was utilized adhering to the principles of ALARA. COMPARISON STUDY: None. FINDINGS: The lung bases are clear. No pneumoperitoneum. No pneumatosis. No acute fractures identified. The liver, gallbladder, pancreas, spleen, and adrenal glands are unremarkable. A 9 mm hypodense lesion within the right kidney is technically too small to characterize but favors a cyst. No right-sided hydronephrosis. There is a 12 x 9 mm obstructing stone within the distal left ureter on image 338 resulting in moderate left hydroureteronephrosis and left perinephric edema. There is a 1.9 cm exophytic lesion within the left kidney on image 157. This does not clearly represent a simple cyst and could represent a hyperdense cyst. However, follow-up nonemergent renal ultrasound recommended to exclude the possibility of a solid renal mass. The main portal vein is patent. Normal caliber abdominal aorta. No retroperitoneal or pelvic lymphadenopathy. Normal bladder. No pelvic free fluid. Small fat-containing right inguinal hernia is noted. Colonic diverticulosis. No evidence for acute diverticulitis. No bowel wall thickening or obstruction. Normal appendix. IMPRESSION: 1. A 12 x 9 mm obstructing stone within the distal left ureter resulting in moderate left hydroureteronephrosis. 2. Colonic diverticulosis. No evidence for acute diverticulitis. 3. A 1.9 cm exophytic lesion within the left kidney which does not clearly represent a simple cyst. This could represent a hyperdense cyst. However, follow-up nonemergent renal ultrasound recommended to exclude the possibility of a solid renal mass. ACT 112: Positive. There are findings on this exam that require communication between the performing entity and the patient following Patient Test Result Information Act ([place] Act 112) guidelines. Electronically signed by: Jayden Davila M.D. 01/30/2024 5:25 PM Retrograde Pyelogram 01/31/24 15:00 FL retrograde includes kub CLINICAL HISTORY: LEFT STENT PLACEMENT/ ADD ON COMPARISON STUDY: None. FLUOROSCOPY TIME: 19 seconds. FLUOROSCOPY IMAGES: 3 Ka,r: 6.97 mGy FINDINGS: Retrograde opacification of the left renal collecting system followed by placement of a left ureteral stent. The ureteral stent appears in good position. IMPRESSION: Fluoroscopic assistance as above. ACT 112: Negative or not required by law. Electronically signed by: Jayden Davila M.D. 01/31/2024 4:49 PM 02/02/24 06:22 02/02/24 06:22 Hospital Course (1) Nephrolithiasis: 63 y/o presented with left sided flank/abdominal pain and rapid atrial fibrillation/flutter, new diagnosis 9 x 12 mm obstructing stone - distal left ureter with hydronephrosis. [facility] [place]rology consulted Given the large size of the stone he was taken to the OR 01/[address] Albert Grant and underwent cystoscopy with Left Ureteroscopy, Retrograde Pyelogram, Ureteral Dilation, Left Stent Placement, Stone Basket Extraction, Laser Lithotripsy. Portion of stone sent for analysis - pending There are no other stones on the admission CT. -hematuria has cleared -follow up with Dr. Grant in office for stent removal/exchange in 7-10 days Possible renal cyst noted on CT - outpatient US recommended, Mr. Can is aware and did discuss this with Dr. Grant. Follow up with urologist (2) Afib: Having runs of a.fib and a.flutter on telemetry. Suspect he had PAF during his colonoscopy in 12/2023. TSH mildly low but fT4 normal range - recheck TSH at interval as outpatient Consulted Dr. Stein - cardiology 2h atrial flutter AM of 01/31 then NSR Flecainide 100 mg x 1 given 01/31, last 24h only very short burst of aflutter on tele monitor Recommendations from asphalt dauber: -continue metoprolol 25 mg bid -flecainide 50 mg bid -xarelto 20 mg daily - I discussed risks:benefits of anticoagulation with Mr. Can and his in detail today -follow up in cardiology clinic, monitor heart rates at home (3) Impaired fasting glucose: history of such but hemoglobin a1c is 5.1%. Plan Anxiety - significant situational anxiety and feels this is triggering his flutter episodes. Good response to buspirone May benefit from SSRI for generalized anxiety - he will follow up with his PCP for this. Total Time Total Time Spent Total Time Spent (In Minutes): I personally spent: 40 minutes today on clinical care activities including: reviewing chart notes and vital signs, tele discussion with asphalt dauber examining and counseling the patient counseling the patient's family writing orders documentation Discharge Plan Discharge Items Patient Disposition: Home - Self-Care Reason For Visit: L STONE W HYDRO, NEW AFIB RVR Discharge Diagnosis: left sided ureteral stone, new onset afib/flutter with rapid rate Activity: Resume your previous activity Non-emergency contact: Primary Care Provider and [place] Call non-emergency contact if: you have any medication questions and your symptoms worsen Follow-up/Referrals: Víctor Stein MD [Physician] - (Dr. Stein's office is going to reach out to you to schedule; however, if you do not hear from someone within a couple days, please reach out to their office. Thank you! ) Albert Grant DO [Physician] - 02/18/24 9:45 am Yoesph Pyle DO [Primary Care Provider] - 02/09/24 11:30 am Diet: Regular Addtl Attending Provider Instructions: Follow up with asphalt dauber for atrial flutter -keep a log of your heart rate -metoprolol is prescribed to slow your heart rate -flecainide is prescribed to help keep you in normal rhythm -xarelto is prescribed to reduce your risk of stroke - this is a blood thinner - it carries risk of bleeding. If you develop pink or red urine stop taking the blood thinner and call the urologist. Blood thinners carry risk of gastrointestinal bleeding and intracranial bleeding that is rare but can be life-threatening. Seek immediate medical attention if you develop black/tarry or bloody stools, vomiting blood, loss of consciousness / altered mental status or symptoms of stroke: face arm or leg weakness or numbness, trouble talking or understanding, trouble with balance/coordination like trouble walking Follow up with Dr. Franklin for anxiety we recommend outpatient renal ultrasound to follow up abnormality seen on CT - possibly left renal cyst. Dr. Pyle or the urologist could order this study. If it looks like a worrisome cyst or mass, the urologist will need to address it. Add Weight Control Engineer Provider Instructions: The Urology office will contact you to arrange a follow-up visit. Please call the urology office at [phone] with any questions, concerns or need to reschedule appointments for any reason. We are happy to assist you. While you have a ureteral stent in place: Some discomfort is normal. Certain movements may trigger pain or a feeling that you need to urinate. You may also feel mild soreness or pressure before or during urination. These symptoms should go away a few days after the stent is removed. Your urine may be slightly pink or red. This is due to bleeding caused by minor irritation from the stent. This may happen on and off while you have the stent, it is not harmful and is to be expected. Medication to help minimize discomfort or bladder spasms, or to prevent infection may be prescribed. Take this as directed. Drink plenty of fluids to help flush out your urinary tract. When to call [facility] [place] Urology at [phone]: Your urine contains heavy blood clots or you are unable to urinate You are constantly leaking urine Fever of 101F or higher, chills, nausea, or vomiting Your pain is not relieved with medication The end of the stent comes out of your urethra Pending Studies at Discharge: No Stand-Alone Forms: My [facility], Smoking Cessation Medications and DC Order Prescriptions: New metoprolol succinate 50 mg tablet extended release 24 hr 50 mg PO DAILY Qty: 30 0RF buspirone 5 mg Tablet 5 mg PO TID Qty: 90 0RF flecainide 50 mg tablet 50 mg PO Q12H Qty: 60 0RF Xarelto 20 mg tablet 20 mg PO DAILY Qty: 30 0RF Rx Instructions: must administer with evening meal Continued Zyrtec 10 mg capsule 10 mg PO QAM Discontinued ibuprofen [Advil] 200 mg Tablet 400 - 600 mg PO Q6H PRN (Reason: Pain) Discharge Orders: Discharge Order (Routine); Ordered 02/02/24 Ordered By: Denise Feng/Other Patient Handouts: AFib, ED Atrial Flutter Admission Data Admit Date/Time: 01/30/24 19:59 Attending Provider: Denise Sosa Admit Provider: Jeff Jarquin Primary Care Provider: Yoseph Pyle Other Providers: Jeff Jarquin; Albert Grant; Víctor Stein Other Interventions: Discharge Summary Assessment (RN) Last Done: 02/02/24 12:45 Coding Level of Care Code 47282 INP/OBS DISCH >30 MIN Diagnoses Nephrolithiasis N20.0 Afib I48.91 Impaired fasting glucose R73.01
[2024-02-11 15:48] LABS: Component 2 DNR; Source LEFT URETERAL STONE
== END 2024-02-02 13:41 | disposition home or self-care (01) | DRG 660 ==
LOC: ED 15:37 → 2E 19:59 → SUATTDRO 19:59 → 2E 21:21